=== PATIENT | male | born 1935 | race Caucasian/White ===

== ENCOUNTER 2017-06-18 08:43 | Outpatient (CLI) | payer MEDICARE ==
--- NOTE | 2017-06-18 13:14 | CT ---
ABDOMEN CT WITH AND WITHOUT CONTRAST: Date: 06/18/17 HISTORY: Pancreatic cancer. Status post chemotherapy, radiation therapy, and Whipple surgery. COMPARISON: 03/19/17, 10/12/16. TECHNIQUE: An abdomen CT is performed with and without contrast. Coronal reformatted images are submitted for i nterpretation. FINDINGS: Dependent atelectatic changes in the lung bases are noted. Heart size is within normal limits. No si gnificant pericardial fluid. Coronary calcifications are identified. There is atherosclerosis and el ongation of a nonaneurysmal aorta. There is nonspecific dilatation of the intrahepatic biliary system. The intra and extrahepatic chaparro l vein is patent. There is no evidence of an enhancing mass within the liver. The spleen and adrenal glands are unrema rkable. Stable hypodensity emanating from the upper pole of the right kidney compatible with a slightly comp alice cyst, measuring 4.3 x 4.2 cm. Additional hypodensities in the right kidney are also redemonstrat ed and unchanged. There is a nonspecific, nonobstructing calcification in the left renal pelvis. Lef t renal hypodensities are also noted and unchanged. The head of the pancreas and proximal body of the pancreas appear to be surgically absent. There is atrophy in the mid to distal body of the pancreas, as well as tail of the pancreas. There is a hypod ensity in the mid portion of the pancreatic body, unchanged in size measuring approximately 1.0 cm. There are subtle hypodensities in the tail of the pancreas which are also unchanged and best demonst rated on the coronal reformatted images. These hypodensities measure 5.0 and 6.0 mm. No peripancreat ic inflammatory change. There appears to be a stent in the distal pancreatic duct. No gastrohepatic, retrocrural, or periportal lymphadenopathy. No mesenteric mass, lymphadenopathy, free air, or free fluid. Symmetric attenuation of psoas muscles. Visualized alimentary canal is unremarkable. There are no osteoblastic or osteolytic lesions. There is a subtle lucency along the inferior end plate of T11 suggesting a possible mild compression fracture. This lucency was not appreciated in March 2017. IMPRESSION: 1. Findings compatible with previous Whipple surgery. 2. Multiple hypodensities in the pancreas, which are unchanged from the previous examination. 3. Indeterminate lucency involving the inferior end plate of T11 suggesting an end plate fracture. POS: JAIME
[2017-06-18] MEDS ORDERED: Iopamidol 370 76% 100 ML VIAL ONE (15:58)
== END 2017-06-18 08:44 | disposition home or self-care (01) ==
LOC: CT 08:43
PROVIDERS: ATTEND Internal Medicine Medical Oncology
DX: C25.0 Malignant neoplasm of head of pancreas (principal)
CPT/HCPCS: 74170

== ENCOUNTER 2017-09-26 08:55 | Outpatient (CLI) | payer MEDICARE ==
[2017-09-26] MEDS ORDERED: Iopamidol 370 76% 100 ML VIAL ONE (16:25)
== END 2017-09-26 08:56 | disposition home or self-care (01) ==
LOC: BICCT 08:55
PROVIDERS: ATTEND Internal Medicine Medical Oncology
DX: C25.9 Malignant neoplasm of pancreas, unspecified (principal); N28.1 Cyst of kidney, acquired; Z98.890 Other specified postprocedural states
CPT/HCPCS: 74160

== ENCOUNTER 2017-12-27 09:33 | Outpatient (CLI) | payer MEDICARE ==
[2017-12-27] MEDS ORDERED: Iopamidol 370 76% 100 ML VIAL ONE (16:10)
== END 2017-12-27 09:34 | disposition home or self-care (01) ==
LOC: BICCT 09:33
PROVIDERS: ATTEND Internal Medicine Medical Oncology
DX: C25.0 Malignant neoplasm of head of pancreas (principal); C25.2 Malignant neoplasm of tail of pancreas; N28.1 Cyst of kidney, acquired; Z98.890 Other specified postprocedural states
CPT/HCPCS: 71046; 74160

== ENCOUNTER 2018-03-18 14:53 | Inpatient (IN) | payer MEDICARE ==
[2018-03-18 15:23] LABS: Bilirubin Moderate (Negative); Blood, Urine Negative (Negative); Clarity TURBID (Clear); Glucose, Urine (Dipstick) 250 mg/dL (Negative); Leukocyte Moderate (Negative); Nitrite Negative (Negative); Protein, Urine (Dipstick) 300 mg/dL (Neg-Trace); Specific Gravity, Urine 1.025 (1.002-1.036)
[2018-03-18 15:28] LABS: Pathc Cast-AUWi Flag 19.19 (0-2.49)
[2018-03-18 15:36] LABS: Bacteria/HPF 1+ HPF (None Seen); Crystals/HPF 1+ CA OXALATE HPF (Negative); Hyaline Casts/LPF 0-3 HYALINE CAST LPF (0-3 Hyaline); Manual Microscopic Reviewed? No Path Casts Seen; RBC/HPF 0-3 HPF (0-3); Renal Epithelial None Seen HPF (0-3); Transitional Epithelial 0-3 HPF (0-3)
[2018-03-18 15:36] LABS: Hemoglobin 16.4 g/dL (14.0-18.0); Mean Corpuscular HGB CONC 34.2 g/dL (32.0-36.0); Mean Corpuscular Hemoglobin 33.5 pg (27.0-31.0); Mean Corpuscular Volume 97.9 fL (78.0-98.0); Mean Platelet Volume 7.8 fL (7.4-10.4); Platelet Count 151 thou/uL (130-400); RBC Distribution Width 12.5 % (11.5-14.5); Red Blood Cell (RBC) Count 4.91 mill/uL (4.70-6.10); White Blood Cell (WBC) Count 8.5 thou/uL (4.8-10.8)
[2018-03-18 15:54] LABS: ALT (SGPT) 60 U/L (8-55); AST (SGOT) 59 U/L (5-34); Alkaline Phosphatase 185 U/L (40-150); Anion Gap 14 mmol/L (10-20); BUN (Urea Nitrogen) 21 mg/dL (8.4-25.7); Bilirubin, Total 1.2 mg/dL (0.2-1.2); CK (CPK) 139 U/L (30-200); Calc. Creatinine Clearance 0 mL/min (70-130); Calcium 9.7 mg/dL (7.8-10.44); Carbon Dioxide 23 mmol/L (23-31); Chloride 103 mmol/L (98-107); Estimated GFR-MDRD 44; Globulin 3.5 g/dL (2.4-3.5); Glucose 177 mg/dL (83-110); Potassium 3.5 mmol/L (3.5-5.1); Protein, Total 7.5 g/dL (5.8-8.1); Sodium 136 mmol/L (136-145)
[2018-03-18 15:57] LABS: CKMB 2.3 ng/mL (0-6.6); Troponin I 0.026 ng/mL (< 0.028)
--- NOTE | 2018-03-18 16:05 | RAD ---
CHEST ONE VIEW: History: Dyspnea. FINDINGS: Cardiac silhouette and pulmonary vasculature are unremarkable. Right hemidiaphragm is slightly elevat ed. Mediastinum is midline with a dual-lead left subclavian cardiac electronic device and aortic calc ification. There is no confluent airspace consolidation or evidence of pneumothorax. traffic monitor specialist leads overlie the chest. IMPRESSION: 1. Atherosclerosis. 2. No active cardiopulmonary abnormalities are otherwise demonstrated. POS: GIULIA
--- NOTE | 2018-03-18 16:06 | CT ---
CT BRAIN WITHOUT CONTRAST: Indication: Altered mental status. Comparison: None. FINDINGS: There is mild generalized cerebral and cerebellar atrophy. There is mild chronic small vessel white m atter ischemic change. Septum pellucidum and third ventricle are midline. The skull and extracranial soft tissues are within normal limits. IMPRESSION: 1. No acute intracranial hemorrhage, infarct, or hydrocephalus present. 2. Mild chronic small vessel white matter ischemic change. 3. Mild generalized cerebral and cerebellar atrophy. POS: JAIME
[2018-03-18 16:08] LABS: Band 19 % (5-11); Lymphocytes 6 % (21-51); MDiff Complete? YES; Monocytes 4 % (0-10); Neutrophil 71 % (42-75); PLT Morphology Comment Appears Adequate
[2018-03-18] MEDS ORDERED: Piperacillin/Tazobactam 4.5 GM, Admixture Fee 1 EACH in Sodium Chloride 0.9% 100 ML IVPB SCH (17:00)
[2018-03-18 18:12] LABS: Magnesium 1.7 mg/dL (1.6-2.6)
[2018-03-18 19:47] LABS: Troponin I 0.072 ng/mL (< 0.028)
--- NOTE | 2018-03-18 20:04 | CT ---
CT OF ABDOMEN AND PELVIS 03/18/18 COMPARISON: 04/28/17 HISTORY: Weakness, altered mental status. TECHNIQUE: Serial axial CT imaging is obtained at 5 mm intervals from lung bases through pubic symphysis without contrast. Coronal reformatted imaging obtained. FINDINGS: Lack of contrast limits assessment of the viscera, bowel, vascular structures and for lymphadenopathy . Incompletely imaged transvenous pacing device present. Coronary arterial calcifications are noted. Im aged lung parenchyma demonstrates no acute findings. No free intraperitoneal air is seen. Limited ass essment of the liver, spleen, and adrenal glands is unremarkable. The pancreas is atrophic. There is a bowel suture line associated with the distal stomach. There is a suture line associated with the du odenum as well. Lack of contrast media limits assessment of the chaparro hepatis in the area of postsurg ical change. There is a exophytic upper pole right renal cyst measuring approximately 4 cm. Two punctate nonobstructing stones are noted within the mid/lower pole left kidney measuring up to 4 mm. There is no evidence for obstructive uropathy on either side. Prostate gland is prominent and demonstrates dystrophic calcification. Limited assessment of the maxim l demonstrates no acute findings. There is extensive atherosclerotic calcification of the abdominal a nyla and its branches. The osseous structures demonstrate prominent multilevel degenerative change wi thin the lumbar spine. Mild age indeterminate anterior wedge compression fracture at T12 noted. Stable anterior wedge compression fracture of L2 noted. IMPRESSION: Numerous chronic findings as described above. No evidence for obstructive uropathy. POS: [facility]
[2018-03-18] MEDS ORDERED: Ondansetron ODT 4 MG TAB SL PRN (20:05)
[2018-03-18] MEDS ORDERED: Ondansetron HCl/PF 4 MG/2 ML Vial IVP PRN ×2 (20:05→22:13)
[2018-03-18] MEDS ORDERED: Sodium Chloride 0.9% 1,000 ML IV SCH (20:05)
[2018-03-18 20:12] VITALS: BMI 23.9
[2018-03-18 21:19] LABS: Lactic Acid 4.6 mmol/L (0.5-2.2)
[2018-03-18] MEDS ORDERED: Calcium Carbonate 500 MG ChewTAB PO PRN (21:24)
[2018-03-18] MEDS ORDERED: Pancrelipase DR 12000 1 CAP PO SCH (21:30)
[2018-03-18] MEDS ORDERED: Potassium Phosphate 15 MMOL in Sodium Chloride 0.9% 250 ML 250 ML IVPB SCH ×2 (21:30→22:30)
[2018-03-18] MEDS ORDERED: TRESIBA SC SCH (21:30)
[2018-03-18] MEDS ORDERED: cloNIDine 0.1 MG TAB PO PRN (22:13)
[2018-03-18] MEDS ORDERED: hydrALAZINE 20 MG/ML VIAL SLOW IVP PRN (22:13)
[2018-03-18] MEDS ORDERED: HumaLOG 300 UNITS/3 ML VIAL SC PRN (22:13)
[2018-03-18] MEDS ORDERED: Dextrose 50% Abboject 50 ML SYRINGE SLOW IVP PRN (22:13)
[2018-03-18] MEDS ORDERED: Dextrose 5% in Water 1,000 ML IV PRN (22:13)
[2018-03-18] MEDS ORDERED: Ondansetron ODT 4 MG TAB PO PRN (22:13)
[2018-03-18] MEDS ORDERED: Acetaminophen 500 MG TAB PO PRN (22:13)
[2018-03-18] MEDS: Sodium Chloride 0.9% 1,000 ML IV SCH (23:17)
[2018-03-18] MEDS ORDERED: Piperacillin/Tazobactam 4.5 GM in Sodium Chloride 0.9% 100 ML IVPB SCH (23:59)
[2018-03-19] MEDS: Piperacillin/Tazobactam 3.375 GM in Sodium Chloride 0.9% 100 ML IVPB SCH ×5 (01:54→23:29)
[2018-03-19 02:28] LABS: Lactic Acid 2.9 mmol/L (0.5-2.2)
[2018-03-19 02:41] LABS: Band 37 % (5-11); Hemoglobin 13.2 g/dL (14.0-18.0); Lymphocytes 11 % (21-51); MDiff Complete? YES; Mean Corpuscular HGB CONC 34.8 g/dL (32.0-36.0); Mean Corpuscular Hemoglobin 34.3 pg (27.0-31.0); Mean Corpuscular Volume 98.6 fL (78.0-98.0); Monocytes 15 % (0-10); Neutrophil 37 % (42-75); PLT Morphology Comment Appears Decreased; Platelet Count 113 thou/uL (130-400); RBC Distribution Width 12.5 % (11.5-14.5); Red Blood Cell (RBC) Count 3.86 mill/uL (4.70-6.10); White Blood Cell (WBC) Count 12.5 thou/uL (4.8-10.8)
[2018-03-19 03:10] LABS: ALT (SGPT) 65 U/L (8-55); AST (SGOT) 65 U/L (5-34); Albumin 3.1 g/dL (3.4-4.8); Alkaline Phosphatase 120 U/L (40-150); Anion Gap 12 mmol/L (10-20); BUN (Urea Nitrogen) 20 mg/dL (8.4-25.7); Bilirubin, Total 1.2 mg/dL (0.2-1.2); Calc. Creatinine Clearance 51 mL/min (70-130); Calcium 8.7 mg/dL (7.8-10.44); Carbon Dioxide 23 mmol/L (23-31); Chloride 106 mmol/L (98-107); Estimated GFR-MDRD 53; Globulin 2.5 g/dL (2.4-3.5); Glucose 267 mg/dL (83-110); Phosphorus 4.1 mg/dL (2.3-4.7); Potassium 4.2 mmol/L (3.5-5.1); Protein, Total 5.6 g/dL (5.8-8.1); Sodium 137 mmol/L (136-145)
--- NOTE | 2018-03-19 03:32 | HP ---
DATE OF ADMISSION: 03/18/2018 PRIMARY CARE PHYSICIAN: Dr. Beauchamp with [facility] in [place], [place]. CHIEF COMPLAINT: Chills, weakness, and confusion. HISTORY OF PRESENT ILLNESS: This is an 82-year-old male who presents to [facility] Emergency Department complaining of general weakness, chills, fever, and general body aches. Patient states the symptoms began in the last 24 hours, at which he got into his truck and t urn the heater on due to the shaking chills. Patient apparently was feeling like he is going to pass out in his truck, which was parked in his driveway. Patient's family noted he was lethargic and nee ding help to get out of the truck. Patient apparently had an episode of emesis while in his vehicle as well as in urine incontinence. Patient's daughter noted that his speech was somewhat garbled and not fluent and became concerned for a possible stroke. Patient's history is significant for pancreat ic cancer, status post chemotherapy and radiation treatments, last complete approximately 4 months pr ior to this evaluation. Patient states he has a regular CT imaging of his pancreas every 3 months an d is followed at the [facility] as well as at [facility] in [place], [place]. Patient denied any sick contacts, family members with similar symptoms, recent antibiotic exposure. Patient denies any recent illness and states his appetite has been good. Patient denies any specific change to his chronic medication regimen, states he has been compliant. Patient denied any prominent cough, congestion, fever, headache, or unilateral weakness. Patient admits to mild dys uria, but states he has been unable to urinate since arriving up to the telemetry unit. In the emerg ency room, patient underwent general evaluation including metabolic screening showing an elevated lac tic acid level and urinalysis suspicious for infectious process. Patient received IV vancomycin and Zosyn after suspicion for sepsis and given intravenous normal saline. Patient was also treated with aspirin 324 mg and transferred to the telemetry unit for further evaluation. PAST MEDICAL HISTORY: 1. Pancreatic cancer, status post Whipple procedure with resection and chemotherapy and radiation tr eatments. 2. Hypertension. 3. Hypothyroidism. 4. History of nephrolithiasis. PAST SURGICAL HISTORY: 1. Status post Whipple procedure. 2. Status post pancreatic stent placement. 3. Status post back surgery. 4. Status post bilateral total knee arthroplasty. 5. Status post pacemaker placement. CURRENT MEDICATIONS: 1. Enteric-coated aspirin 81 mg one-tab p.o. daily. 2. Gabapentin 300 mg p.o. b.i.d. 3. Tresiba FlexTouch 19 units subcutaneously at bedtime. 4. Levothyroxine 25 mcg p.o. daily. 5. Losartan/hydrochlorothiazide 100/25 mg one-tab p.o. daily. 6. Multivitamin one-tab p.o. daily. 7. Creon DR 3 capsules p.o. t.i.d. 8. Red yeast rice extract 1200 mg p.o. daily. 9. Coenzyme Q10 of 50 mg p.o. daily. ALLERGIES: No known drug allergies. FAMILY HISTORY: No inheritable diseases per patient report. SOCIAL HISTORY: Patient resides in [place], [place]. Retired. . No current alcohol, tobacco or illicit drug use. Functional of all activities of daily living. REVIEW OF SYSTEMS: The following complete review of systems was otherwise negative, except as stated per HPI: Constitutional: Weight loss or gain, ability to conduct usual activities. Skin: Rash, i tching. Eyes: Double vision, pain. ENT/Mouth: Nose bleeding, neck stiffness, pain, tenderness. C ardiovascular: Palpitations, dyspnea on exertion, orthopnea. Respiratory: Shortness of breath, whe ezing, cough, hemoptysis, fever, or night sweats. Gastrointestinal: Poor appetite, abdominal pain, heartburn, nausea, vomiting, constipation, or diarrhea. Genitourinary: Urgency, frequency, dysuria, nocturia. Musculoskeletal: Pain, swelling. Neurologic/Psychiatric: Anxiety, depression. Allergy /Immunologic: Skin rash, bleeding tendency. PHYSICAL EXAMINATION: VITAL SIGNS: Currently blood pressure 127/61, pulse 81, respiratory rate 18, temperature 98.6 degree s Fahrenheit, O2 saturation 97% on room air. GENERAL APPEARANCE: This is an 82-year-old male, alert and oriented x3, pleasant, conversa nt, in no acute distress. HEENT: Pupils are equal, round, and reactive to light and accommodation. Extraocular muscles are in tact. No scleral icterus, no conjunctival injection. Nares patent. OP is clear. Oral mucosa dry. NECK: Supple, no cervical adenopathy, no thyromegaly, no carotid bruits, no JVD appreciated. Cervic al spine with full active and passive range of motion. No meningeal signs appreciated. CHEST: Lungs are clear to auscultation bilaterally. CARDIOVASCULAR: S1, S2 without noted murmur, rub, or gallop. ABDOMEN: Rounded, soft, nontender, nondistended. Bowel sounds are positive in all four quadrants. Post-surgical changes consistent with prior Whipple procedure. No rebound or guarding. EXTREMITIES: Warm and dry with fair turgor. No clubbing, cyanosis, or asymmetric edema appreciated. Pulses palpable distally at the dorsalis pedis, posterior tibial, and popliteal arteries bilaterall y. Capillary refill less than 2 seconds. NEUROLOGIC: Cranial nerves II-XII are grossly intact. No focal or lateralizing signs appreciated. PERTINENT LABORATORY DATA AND X-RAY FINDINGS: Sodium 136, potassium 3.5, chloride 103, CO2 of 23, BU N 21, creatinine 1.51, estimated GFR of 44, glucose 177. Lactic acid level 4.5, calcium 9.7, phospho stella 1.0. Magnesium 1.7, AST 59, ALT 60, alkaline phosphatase 185. Total CK 139. Troponin I negativ e x1. CRP less than 0.50. Lipase less than 4. CBC showed a white blood cell count of 8.5, hemoglob in 16, hematocrit 48, platelet count 151 with 71% neutrophils, 19% bands. Urinalysis showed trace ke tones, moderate bilirubin, moderate leukocyte esterase with 7-10 wbc's per high powered field. Rony ble chest x-ray dated 03/18/2018 showed no acute cardiopulmonary process. CT of the brain without co ntrast dated 03/18/2018 showed no acute intracranial process. Chronic small vessel ischemic changes noted. CT of the abdomen and pelvis dated 03/18/2018 showed numerous chronic findings without acute process. EKG dated 03/18/2018 by my interpretation shows ventricular pacemaker with heart rates in t he 80s. ASSESSMENT AND PLAN: 1. Sepsis. Patient will be admitted to the telemetry unit. Suspect urinary source initially. We w ill continue vancomycin 1 gram IV q.12 hours with additional Zosyn 3.375 grams IV q.6 hours. We will continue intravenous normal saline at 125 mL per hour. Blood and urine cultures pending. Serial la ctic acid per protocol. 2. Acute metabolic encephalopathy secondary to #1. Continue supportive management as outlined in #[address] imaging of the brain unremarkable. 3. Acute kidney injury. We will continue IV fluids as outlined in #1. Avoid nephrotoxic agents and contrast media. Serial creatinine. 4. Hypophosphatemia. We will continue K-Phos and monitor with repeat phosphorus level in the a.m. 5. Diabetes mellitus, type 2. We will continue home regimen of Tresiba 19 units subcutaneously at b edtime. Insulin sliding scale for reflexive coverage. ADA diet. 6. Hypertension. Hold losartan/ hydrochlorothiazide and monitor clinically. 7. Hypothyroidism. Resume levothyroxine 25 mcg daily. 8. Pancreatic cancer, status post Whipple procedure. Stable currently. Continue supportive managem ent. CT of the abdomen unrevealing. 9. Prophylaxis. Sequential compression devices while in bed. Pepcid 20 mg p.o. b.i.d. 10. Code status is FULL. Surrogate medical decision maker is patient's spouse.
[2018-03-19] MEDS: Sodium Chloride 0.9% 1,000 ML IV SCH ×3 (05:35→18:16)
[2018-03-19] MEDS: Levothyroxine Sodium 25 MCG TAB PO SCH (05:35)
[2018-03-19] MEDS: Gabapentin 300 MG CAP PO SCH ×2 (07:50→19:39)
[2018-03-19] MEDS: Famotidine 20 MG TAB PO SCH (07:50)
[2018-03-19] MEDS: Aspirin 81 mg Enteric Coated Tablet PO SCH (07:50)
[2018-03-19] MEDS: Multivitamin W/ Minerals 1 TAB PO SCH (07:50)
[2018-03-19] MEDS ORDERED: Vancomycin HCl 1.5 GM in Sodium Chloride 0.9% 250 ML 300 ML IVPB SCH (09:00)
[2018-03-19] MEDS: Pancrelipase DR 12000 1 CAP PO SCH ×2 (11:59→18:16)
[2018-03-19] MEDS: HumaLOG 300 UNITS/3 ML VIAL SC PRN (18:07)
[2018-03-20] MEDS: Piperacillin/Tazobactam 3.375 GM in Sodium Chloride 0.9% 100 ML IVPB SCH ×3 (05:14→18:36)
[2018-03-20] MEDS: Levothyroxine Sodium 25 MCG TAB PO SCH (05:15)
[2018-03-20] MEDS: Sodium Chloride 0.9% 1,000 ML IV SCH (05:15)
[2018-03-20 08:08] LABS: Vancomycin, Trough 7.8 ug/mL
--- NOTE | 2018-03-20 08:10 | PDOC.PN ---
- Subjective Encounter Start Date: 03/19/18 - Objective Resuscitation Status: Resuscitation Status FULL:Full Resuscitation Vital Signs & Weight: Vital Signs (12 hours) Temp Pulse Resp BP Pulse Ox 03/20/18 07:15 98.4 F 71 18 161/85 H 94 L 03/20/18 04:00 98.2 F 72 18 158/83 H 95 03/19/18 23:27 98.5 F 74 18 152/73 H 96 Weight Weight 184 lb 8 oz I&O: 03/19/18 03/20/18 03/21/18 06:59 06:59 06:59 Intake Total 1994 4440 Output Total 1300 2075 Balance 148 8847 Result Diagrams: 03/19/18 02:00 03/19/18 02:00 Additional Labs: Accuchecks 03/20/18 03/19/18 03/19/18 05:53 20:49 16:49 POC Glucose 135 H 194 H 229 H 03/19/18 10:39 POC Glucose 197 H Dx/Plan - Plan * .
[2018-03-20 08:20] LABS: #Eosinphils 0.1 thou/uL (0.0-0.7); #Lymphocytes 1.2 thou/uL (1.20-3.40); #Monocytes 0.8 thou/uL (0.11-0.59); #Neutrophils 6.8 thou/uL (1.40-6.50); %Basophils 0.3 % (0.0-1.0); %Eosinophils 1.5 % (0.0-10.0); %Lymphocytes 13.2 % (21.0-51.0); %Monocytes 8.9 % (0.0-10.0); %Neutrophils 76.1 % (42.0-75.0); Hemoglobin 13.4 g/dL (14.0-18.0); Mean Corpuscular Hemoglobin 33.2 pg (27.0-31.0); Mean Platelet Volume 8.5 fL (7.4-10.4); Platelet Count 105 thou/uL (130-400); RBC Distribution Width 12.5 % (11.5-14.5); Red Blood Cell (RBC) Count 4.04 mill/uL (4.70-6.10); White Blood Cell (WBC) Count 8.9 thou/uL (4.8-10.8)
[2018-03-20 08:47] LABS: Anion Gap 11 mmol/L (10-20); BUN (Urea Nitrogen) 14 mg/dL (8.4-25.7); Calc. Creatinine Clearance 66 mL/min (70-130); Calcium 8.7 mg/dL (7.8-10.44); Carbon Dioxide 24 mmol/L (23-31); Chloride 108 mmol/L (98-107); Estimated GFR-MDRD 71; Glucose 158 mg/dL (83-110); Potassium 3.9 mmol/L (3.5-5.1); Sodium 139 mmol/L (136-145)
[2018-03-20] MEDS: Aspirin 81 mg Enteric Coated Tablet PO SCH (08:49)
[2018-03-20] MEDS: Pancrelipase DR 12000 1 CAP PO SCH ×3 (08:49→18:37)
[2018-03-20] MEDS: Multivitamin W/ Minerals 1 TAB PO SCH (08:49)
[2018-03-20] MEDS: Famotidine 20 MG TAB PO SCH (08:49)
[2018-03-20] MEDS: Gabapentin 300 MG CAP PO SCH ×2 (08:49→22:19)
--- NOTE | 2018-03-20 21:18 | PDOC.PN ---
- Subjective Encounter Start Date: 03/20/18 Encounter Start Time: 11:15 Subjective: pt up in bed no complains - Objective Resuscitation Status: Resuscitation Status FULL:Full Resuscitation Vital Signs & Weight: Vital Signs (12 hours) Temp Pulse Resp BP Pulse Ox 03/20/18 16:40 97.9 F 55 L 18 165/72 H 95 03/20/18 12:15 98.1 F 65 16 165/85 H 95 Weight Weight 184 lb 8 oz I&O: 03/19/18 03/20/18 03/21/18 06:59 06:59 06:59 Intake Total 1994 4439 Output Total 1300 2075 Balance 695 2365 Result Diagrams: 03/20/18 07:38 03/20/18 07:38 Additional Labs: Accuchecks 03/20/18 03/20/18 11:41 05:53 POC Glucose 156 H 135 H Phys Exam - Physical Examination HEENT: PERRLA, moist MMs, sclera anicteric, TM's clear, oral pharynx no lesions , 2+ tonsils Neck: no nodes, no JVD, supple, full ROM Respiratory: no wheezing, no rales, no rhonchi, wheezing present, clear to auscultation bilateral Cardiovascular: RRR, no significant murmur, no rub, gallop, irregular Gastrointestinal: soft, non-tender, no distention, positive bowel sounds Dx/Plan (1) Bacteremia Code(s): R78.81 - BACTEREMIA Status: Acute (2) Pancreatic cancer Status: Acute (3) V-tach Code(s): I47.2 - VENTRICULAR TACHYCARDIA Status: Acute - Plan pt's blood cx positive for gram neg -: On zosyn will continue until sensitivities -: vanco discontinued -: pt has 9 beats of vtach followed by 3pvc and another 18 beat vtach -: will get echo. He is s/p whipple for pancreatic cancer * . Review of Systems - Review of Systems ENT: negative: Ear Pain, Ear Discharge, Nose Pain, Nose Discharge, Nose Congestion, Mouth Pain, Mouth Swelling, Throat Pain, Throat Swelling, Other Respiratory: negative: Cough, Dry, Shortness of Breath, Hemoptysis, SOB with Excertion, Pleuritic Pain, Sputum, Wheezing Cardiovascular: negative: chest pain, palpitations, orthopnea, paroxysmal nocturnal dyspnea, edema, light headedness, other Gastrointestinal: negative: Nausea, Vomiting, Abdominal Pain, Diarrhea, Constipation, Melena, Hematochezia, Other - Medications/Allergies Allergies/Adverse Reactions: Allergies Allergy/AdvReac Type Severity Reaction Status Date / Time No Known Drug Allergies Allergy Unverified 03/18/18 16:58 Medications: Current Medications Acetaminophen (Tylenol) 1,000 mg PO Q6H PRN PRN Reason: Headache/Fever or Mild Pain Lipase/Protease/Amylase (Arielle Anguiano [id number]) 3 cap PO TID-WM [facility] Last Admin: 03/20/18 18:37 Dose: 3 cap Aspirin (Ecotrin) 81 mg PO DAILY [facility] Last Admin: 03/20/18 08:49 Dose: 81 mg Calcium Carbonate (Tums) 1,000 mg PO Q6H PRN PRN Reason: Heartburn or Indigestion Last Admin: 03/18/18 22:37 Dose: 1,000 mg Clonidine (Catapres) 0.1 mg PO Q4H PRN PRN Reason: Systolic BP > 180 Dextrose/Water (Dextrose 50%) 25 gm SLOW IVP PRN PRN PRN Reason: Hypoglycemia Famotidine (Pepcid) 20 mg PO DAILY [facility] Last Admin: 03/20/18 08:49 Dose: 20 mg Gabapentin (Neurontin) 300 mg PO BID [facility] Last Admin: 03/20/18 08:49 Dose: 300 mg Glucagon (Glucagon) 1 mg IM PRN PRN PRN Reason: Hypoglycemia Hydralazine HCl (Apresoline) 10 mg SLOW IVP Q4H PRN PRN Reason: Systolic BP > 180 Dextrose/Water (D5w) 1,000 mls @ 0 mls/hr IV .Q0M PRN; As Directed PRN Reason: Hypoglycemia Piperacillin Sod/Tazobactam (Sod 3.375 gm/ Sodium Chloride) 100 mls @ 200 mls/ hr IVPB Q6HR [facility] Last Admin: 03/20/18 18:36 Dose: 100 mls Insulin Human Lispro (Humalog) 0 units SC .MODERATE SLIDING SC PRN PRN Reason: Moderate Correctional Scale Last Admin: 03/19/18 18:07 Dose: 4 unit Insulin Human Lispro (Humalog) 0 units SC .BEDTIME SLIDING SC PRN PRN Reason: Bedtime Correctional Scale Iron/Minerals/Multivitamins (Theragran M) 1 tab PO DAILY [facility] Last Admin: 03/20/18 08:49 Dose: 1 tab Levothyroxine Sodium (Synthroid) 25 mcg PO 0600 [facility] Last Admin: 03/20/18 05:15 Dose: 25 mcg Ondansetron HCl (Zofran Odt) 4 mg PO Q6H PRN PRN Reason: Nausea/Vomiting Ondansetron HCl (Zofran) 4 mg IVP Q6H PRN PRN Reason: Nausea/Vomiting Sodium Chloride (Flush - Normal Saline) 10 ml IVF Q12HR [facility] Last Admin: 03/20/18 08:50 Dose: Not Given Sodium Chloride (Flush - Normal Saline) 10 ml IVF PRN PRN PRN Reason: Saline Flush
[2018-03-21] MEDS: Piperacillin/Tazobactam 3.375 GM in Sodium Chloride 0.9% 100 ML IVPB SCH ×2 (00:55→05:51)
[2018-03-21 05:37] LABS: #Eosinphils 0.1 thou/uL (0.0-0.7); #Lymphocytes 1.2 thou/uL (1.20-3.40); #Monocytes 0.7 thou/uL (0.11-0.59); #Neutrophils 4.4 thou/uL (1.40-6.50); %Basophils 0.6 % (0.0-1.0); %Eosinophils 1.4 % (0.0-10.0); %Lymphocytes 19.2 % (21.0-51.0); %Neutrophils 67.8 % (42.0-75.0); Hemoglobin 12.5 g/dL (14.0-18.0); Mean Corpuscular Hemoglobin 33.8 pg (27.0-31.0); Mean Corpuscular Volume 99.4 fL (78.0-98.0); Mean Platelet Volume 8.5 fL (7.4-10.4); Platelet Count 104 thou/uL (130-400); RBC Distribution Width 12.2 % (11.5-14.5); Red Blood Cell (RBC) Count 3.72 mill/uL (4.70-6.10); White Blood Cell (WBC) Count 6.4 thou/uL (4.8-10.8)
[2018-03-21 05:39] LABS: Anion Gap 8 mmol/L (10-20); BUN (Urea Nitrogen) 14 mg/dL (8.4-25.7); Calc. Creatinine Clearance 68 mL/min (70-130); Calcium 8.6 mg/dL (7.8-10.44); Carbon Dioxide 28 mmol/L (23-31); Chloride 106 mmol/L (98-107); Estimated GFR-MDRD 74; Glucose 235 mg/dL (83-110); Potassium 4.1 mmol/L (3.5-5.1); Sodium 138 mmol/L (136-145)
[2018-03-21] MEDS: Levothyroxine Sodium 25 MCG TAB PO SCH (05:51)
[2018-03-21] MEDS: HumaLOG 300 UNITS/3 ML VIAL SC PRN (09:11)
[2018-03-21] MEDS: Famotidine 20 MG TAB PO SCH (09:11)
[2018-03-21] MEDS: Multivitamin W/ Minerals 1 TAB PO SCH (09:11)
[2018-03-21] MEDS: Aspirin 81 mg Enteric Coated Tablet PO SCH (09:11)
[2018-03-21] MEDS: Gabapentin 300 MG CAP PO SCH ×2 (09:11→21:19)
--- NOTE | 2018-03-21 11:24 | PQF ---
CLINICAL DOCUMENTATION IMPROVEMENT CLARIFICATION FORM: ICD-10 Updated PLEASE DO AN ADDENDUM TO THE PROGRESS NOTE WITH ANY DOCUMENTATION UPDATES OR ADDITIONS AND CARRY THROUGH TO DC SUMMARY. THANK YOU. DATE: 03/21/18 ATTN: Dr. Luevano Please exercise your independent, professional judgment in responding to the clarification form. Clinical indicators are provided on the bottom of this form for your review Please check appropriate box(s) to clarify if the following diagnosis has been ruled in or ruled out: SEPSIS (H&P) . [x ] Ruled in diagnosis [x ] Continue to treat [ ] Resolved [ ] Ruled out diagnosis [ ] Cannot rule out diagnosis [ ] Other diagnosis [ ] Unable to determine In addition, please specify: Present on Admission (POA): [ x ] Yes [ ] No [ ] Unable to determine For continuity of documentation, please document condition throughout progress notes and discharge summary. Thank You. CLINICAL INDICATORS - SIGNS / SYMPTOMS / LABS H&P 03/18: LACTIC ACID 4.5 SEPSIS. SUSPECT URINARY SOURCE INITIALLY ACUTE METABOLIC ENCEPHALOPATHY MARIA VICTORIA PN 03/20: BACTEREMIA . ACUTE PT'S BLOOD CULTURE POSITIVE FOR GRAM NEG. RISKS: H&P 03/18: 82 YR OLD. PANCREATIC CANCER, S/P WHIPPLE PROCEDURE. DM 2. HTN TREATMENT: CPOE 03/18: ZOSYN 3.375 GM IV Q 6 HRS Thank you, Ashtyn (This form is maintained as a part of the permanent medical record) 2014 [email or web address] All Rights Reserved Ashtyn Nolen RN, BSN [email or web address] Office: [phone] [facility]
[2018-03-21] MEDS: Pancrelipase DR 12000 1 CAP PO SCH ×3 (12:46→17:39)
[2018-03-21] MEDS: Lisinopril 5 MG TAB PO SCH (12:46)
[2018-03-21] MEDS: cefTRIAXone\\ROCEPHIN 2 GM in Sodium Chloride 0.9% 100 ML IVPB SCH (13:23)
--- NOTE | 2018-03-21 16:18 | PDOC.PN ---
- Subjective Encounter Start Date: 03/21/18 Encounter Start Time: 10:00 Patient Is seen today, alert and oriented. Explained He could go home tomorrow if his BC is Neg - Objective Resuscitation Status: Resuscitation Status FULL:Full Resuscitation Vital Signs & Weight: Vital Signs (12 hours) Temp Pulse Resp BP BP Pulse Ox 03/21/18 12:50 97.9 F 72 16 166/93 H 97 03/21/18 12:46 72 03/21/18 08:00 97.3 F L 72 16 100 03/21/18 07:55 97.3 F L 72 16 181/88 H 100 Weight Weight 185 lb 3.2 oz I&O: 03/20/18 03/21/18 03/22/18 06:59 06:59 06:59 Intake Total 4440 1300 Output Total 2075 1550 Balance 2365 -250 Result Diagrams: 03/21/18 04:30 03/21/18 04:30 Additional Labs: Accuchecks 03/21/18 03/21/18 03/20/18 10:37 05:43 21:11 POC Glucose 133 H 202 H 289 H 03/20/18 16:45 POC Glucose 205 H Radiology Reviewed by me: Yes Phys Exam - Physical Examination HEENT: PERRLA, moist MMs Neck: no nodes, no JVD Respiratory: no wheezing, no rales Cardiovascular: RRR, no significant murmur Gastrointestinal: soft, non-tender Musculoskeletal: no edema, pulses present Neurological: non-focal, normal sensation Dx/Plan (1) Bacteremia Code(s): R78.81 - BACTEREMIA Status: Acute Comment: Gram Neg Bacteremia, Will Change Abx to Rocephin 2 gm daily, will repeat Blood Culture today. Likely source of Infection is urine. (2) Pancreatic cancer Status: Acute Comment: PT follow with [facility], Will see pt as outpaitent for his workup with CT. (3) V-tach Code(s): I47.2 - VENTRICULAR TACHYCARDIA Status: Acute Comment: Will start pt on BB, Echo pedning. Stbale. - Plan cont current plan of care, continue antibiotics, PT/OT, delinquency prevention social worker, incentive spirometry, DVT proph w/lovenox * . Review of Systems - Review of Systems Eyes: negative: Pain, Vision Change, Conjunctivae Inflammation, Eyelid Inflammation, Redness, Other ENT: negative: Ear Pain, Ear Discharge, Nose Pain, Nose Discharge, Nose Congestion, Mouth Pain, Mouth Swelling, Throat Pain, Throat Swelling, Other Cardiovascular: negative: chest pain, palpitations, orthopnea, paroxysmal nocturnal dyspnea, edema, light headedness, other Gastrointestinal: negative: Nausea, Vomiting, Abdominal Pain, Diarrhea, Constipation, Melena, Hematochezia, Other Genitourinary: negative: Dysuria, Frequency, Incontinence, Hematuria, Retention , Other Musculoskeletal: negative: Neck Pain, Shoulder Pain, Arm Pain, Back Pain, Hand Pain, Leg Pain, Foot Pain, Other - Medications/Allergies Allergies/Adverse Reactions: Allergies Allergy/AdvReac Type Severity Reaction Status Date / Time No Known Drug Allergies Allergy Verified 03/21/18 12:45 Medications: Current Medications Acetaminophen (Tylenol) 1,000 mg PO Q6H PRN PRN Reason: Headache/Fever or Mild Pain Lipase/Protease/[place] ([place] [id number]) 3 cap PO TID-[facility] Last Admin: 03/21/18 12:46 Dose: 3 cap Aspirin (Ecotrin) 81 mg PO DAILY [facility] Last Admin: 03/21/18 09:11 Dose: 81 mg Calcium Carbonate (Tums) 1,000 mg PO Q6H PRN PRN Reason: Heartburn or Indigestion Last Admin: 03/18/18 22:37 Dose: 1,000 mg Carvedilol (Coreg) 3.[facility] Clonidine (Catapres) 0.1 mg PO Q4H PRN PRN Reason: Systolic BP > 180 Dextrose/Water (Dextrose 50%) 25 gm SLOW IVP PRN PRN PRN Reason: Hypoglycemia Famotidine (Pepcid) 20 mg PO DAILY [facility] Last Admin: 03/21/18 09:11 Dose: 20 mg Gabapentin (Neurontin) 300 mg PO BID [facility] Last Admin: 03/21/18 09:11 Dose: 300 mg Glucagon (Glucagon) 1 mg IM PRN PRN PRN Reason: Hypoglycemia Hydralazine HCl (Apresoline) 10 mg SLOW IVP Q4H PRN PRN Reason: Systolic BP > 180 Dextrose/Water (D5w) 1,000 mls @ 0 mls/hr IV .Q0M PRN; As Directed PRN Reason: Hypoglycemia Ceftriaxone Sodium 2 gm/ (Sodium Chloride) 100 mls @ 200 mls/hr IVPB 1230 [facility] Last Admin: 03/21/18 13:23 Dose: 100 mls Insulin Human Lispro (Humalog) 0 units SC .MODERATE SLIDING SC PRN PRN Reason: Moderate Correctional Scale Last Admin: 03/21/18 09:11 Dose: 4 unit Insulin Human Lispro (Humalog) 0 units SC .BEDTIME SLIDING SC PRN PRN Reason: Bedtime Correctional Scale Iron/Minerals/Multivitamins (Theragran M) 1 tab PO DAILY [facility] Last Admin: 03/21/18 09:11 Dose: 1 tab Levothyroxine Sodium (Synthroid) 25 mcg PO 0600 [facility] Last Admin: 03/21/18 05:51 Dose: 25 mcg Lisinopril (Zestril) 5 mg PO DAILY [facility] Last Admin: 03/21/18 12:46 Dose: 5 mg Ondansetron HCl (Zofran Odt) 4 mg PO Q6H PRN PRN Reason: Nausea/Vomiting Ondansetron HCl (Zofran) 4 mg IVP Q6H PRN PRN Reason: Nausea/Vomiting Sodium Chloride (Flush - Normal Saline) 10 ml IVF Q12HR [facility] Last Admin: 03/21/18 09:11 Dose: 10 ml Sodium Chloride (Flush - Normal Saline) 10 ml IVF PRN PRN PRN Reason: Saline Flush
[2018-03-21] MEDS: Carvedilol 3.125 MG TAB PO SCH (17:39)
[2018-03-22] MEDS: Levothyroxine Sodium 25 MCG TAB PO SCH (05:48)
[2018-03-22] MEDS: Multivitamin W/ Minerals 1 TAB PO SCH (09:08)
[2018-03-22] MEDS: Pancrelipase DR 12000 1 CAP PO SCH ×2 (09:08→12:08)
[2018-03-22] MEDS: Gabapentin 300 MG CAP PO SCH (09:09)
[2018-03-22] MEDS: Lisinopril 5 MG TAB PO SCH (09:09)
[2018-03-22] MEDS: Carvedilol 3.125 MG TAB PO SCH (09:09)
[2018-03-22] MEDS: Aspirin 81 mg Enteric Coated Tablet PO SCH (09:09)
[2018-03-22] MEDS: Famotidine 20 MG TAB PO SCH (09:09)
[2018-03-22] MEDS: HumaLOG 300 UNITS/3 ML VIAL SC PRN ×2 (09:11→12:10)
[2018-03-22] MEDS: cefTRIAXone\\ROCEPHIN 2 GM in Sodium Chloride 0.9% 100 ML IVPB SCH (12:09)
[2018-03-22 14:25] VITALS: BP 169/62; TEMP 97.7
--- NOTE | 2018-03-25 09:38 | DIS ---
DATE OF ADMISSION: 03/18/2018 DATE OF DISCHARGE: 03/22/2018 ADMITTING DIAGNOSIS: Sepsis. DISCHARGE DIAGNOSIS: Sepsis secondary to urinary tract infection. SECONDARY DIAGNOSES: 1. Acute metabolic encephalopathy. 2. Acute kidney injury. 3. Hypophosphatemia. 4. Type 2 diabetes mellitus. 5. Hypertension. HISTORY OF PRESENT ILLNESS AND HOSPITAL COURSE: In brief, this is an 82-year-old white mal e who presented to the ED complaining of generalized weakness, chills, and fevers with elevated white count. The patient was noted to have a urinary tract infection with elevated white count. The den ent was started on Zosyn and vancomycin initially, as he was pretty septic on the day of admission. His sepsis did improve with antibiotics and urine culture was growing Klebsiella, which was sensitive to Rocephin. So, patient's antibiotic was changed to Rocephin and repeat cultures were ordered. Bl ood cultures did not grow for 24 hours and patient was insisting to go home. So as patient's blood c ultures were sensitive for Rocephin and Omnicef first was prescribed on the day of discharge and the patient was discharged home in stable condition. PHYSICAL EXAMINATION: VITAL SIGNS: On the day of discharge, blood pressure is 169/62, heart rate 72, respiratory rate 16, saturating 96% on room air. GENERAL: The patient is moderately built, moderately nourished. Does not appear to be in acute dist ress at this time. CARDIOVASCULAR: S1, S2 normal. No murmurs, rubs or gallops. LUNGS: Bilateral air entry was equal. No wheezing, no crackles. ABDOMEN: Soft, nontender, no guarding, no rebound tenderness. MUSCULOSKELETAL: No calf tenderness. No pedal edema. No joint tenderness, no joint swelling. DISCHARGE MEDICATIONS: Aspirin 81 mg daily, Coreg 3.125 mg p.o. b.i.d., Omnicef 300 mg p.o. twice a day for one week, gabapentin 300 mg p.o. b.i.d., insulin units subcu at bedtime, levothyroxine 25 mcg p.o. daily, losartan/hydrochlorothiazide one tablet p.o. daily, pancrelipase 3 capsules p.o. t .i.d. DISCHARGE INSTRUCTIONS: Continue activity as tolerated. Advised to follow up with primary care phys ician in 1 week. Advised to complete the course of antibiotics. The patient is prescribed Coreg because he developed V-tachycardia while in the hospital and was pret ty tachycardic. Advised to follow up with Dr. Forman for further management of his pancreatic cancer. I spent 35 minutes of this patient on the day of discharge.
== END 2018-03-22 14:26 | disposition home or self-care (01) | DRG 871 ==
LOC: ERS 14:53 → 2NO 17:58
PROVIDERS: ADMIT Internal Medicine; ATTEND Internal Medicine
DX: A41.9 Sepsis, unspecified organism (principal); G93.41 Metabolic encephalopathy; N17.9 Acute kidney failure, unspecified; I47.2 Ventricular tachycardia; N39.0 Urinary tract infection, site not specified; R65.20 Severe sepsis without septic shock; Z85.07 Personal history of malignant neoplasm of pancreas; I10 Essential (primary) hypertension; E03.9 Hypothyroidism, unspecified; Z95.0 Presence of cardiac pacemaker; E83.39 Other disorders of phosphorus metabolism; E11.9 Type 2 diabetes mellitus without complications; Z79.82 Long term (current) use of aspirin; Z79.4 Long term (current) use of insulin; Z79.899 Other long term (current) drug therapy
CPT/HCPCS: 36415; 36416; 70450; 71045; 74176; 80048; 80053; 80202; 81003; 81015; 82550; 82553; 83605; 83690; 83735; 84100; 84484; 85007; 85025; 85027; 86140; 87040; 87077; 87086; 87149; 87186; 93005; 93306; 96365; 96367; A4216; J0360; J0696; J2543; J3370; J7050

== ENCOUNTER 2018-03-31 08:33 | Outpatient (CLI) | payer MEDICARE ==
--- NOTE | 2018-03-31 11:56 | CT ---
CT ABDOMEN WITH CONTRAST: HISTORY: C25.0 carcinoma of the pancreas status post resection with positive margins. COMPARISON: Comparison with CT abdomen and pelvis stone protocol 03/18/18. Note comparison examinations from 12/27/17 studies from outside facility. FINDINGS: The lung bases are clear. No pericardial effusion. There are numerous hepatic hypodensities which a re concerning for new metastatic disease. Hepatic segment 5 images 25 and 27 measure 7 and 5 mm, eac h. On hepatic segment 8 there is a hypodense near the dome measuring 6 mm. Numerous small sub 5 mm hypodensities are also present. On the 09/26/17 and 12/27/17 examinations these findings appear new. There is abnormal new previously enhancing fluid collection at the level of the pancreatic head with soft tissue attenuation of the pancreatic head concerning for disease recurrence. There is periphera l enhancing with some peripheral suture. There is mural thickening and enhancement concerning for a disease recurrence with resection site. There is abnormal soft tissue density extending along the po rta hepatis. The spleen is unremarkable. Renal hypodensities are similar. No dilated loops of large or small bow el. There is moderate reverse S-shaped scoliosis of the thoracolumbar spine. Compression deformities at T11 and L1 are similar. IMPRESSION: 1. New numerous sub 5 mm hepatic hypodensities as well as a hypodensity measuring up to 7 mm in the liver concerning for new metastatic disease. 2. Abnormal soft tissue attenuation with the pancreatic resection site concerning for disease recurr ence. There is also a new peripherally enhancing fluid collection measuring up to 4.2 cm concerning for disease recurrence along the resection site. POS: JAIME
== END 2018-03-31 08:34 | disposition home or self-care (01) ==
LOC: CT 08:33
PROVIDERS: ATTEND Internal Medicine Medical Oncology
DX: C25.0 Malignant neoplasm of head of pancreas (principal); R93.2 Abnormal findings on diagnostic imaging of liver and biliary tract
CPT/HCPCS: 74160; 82565

== ENCOUNTER 2018-04-04 08:01 | Outpatient (CLI) | payer MEDICARE ==
--- NOTE | 2018-04-04 11:14 | CT ---
CT THORAX WITH IV CONTRAST: DATE: 04/04/18. HISTORY: Malignant neoplasm of pancreas. COMPARISON: CT abdomen on 03/31/18. No prior CT scan of the thorax is available for evaluation. FINDINGS: There is a punctate pulmonary nodule seen within the posterior aspect of the left lower lobe. No add itional pulmonary nodule is seen. There is mild atelectasis versus scarring at the right lung base. Lungs are otherwise clear. No filling defects are seen in the tracheobronchial tree. There is no evidence of lymphadenopathy. A dual-lead left subclavian cardiac pacemaking device is noted in place. Vascular calcifications are seen in the coronary arteries as well as involving the thoracic aorta. As noted on CT scan of the abdomen, there are subcentimeter hypodense lesions within the liver better visualized on the prior exam, but may represent interval development of small metastatic lesions. The previously described enhancing fluid collection at the level of the pancreatic head with surround ing enhancing rim as well as suture material is again present, and this again may be related to disea se recurrence at resection site. This is better evaluated on the recent CT scan of the abdomen. There is evidence of cholecystectomy. Right renal cyst is again present. The compression fracture of the T11 vertebral body with vacuum phenomenon on the intervertebral disk adjacent to this vertebral body as well as prominent degenerative changes are again present. No lytic or sclerotic or osseous lesions are appreciated. IMPRESSION: 1. Tiny nonspecific pulmonary nodule left lower lobe. No additional pulmonary nodule is seen, and t here is no parenchymal lung mass present. No lymphadenopathy is noted. 2. As noted on prior CT scan of the abdomen, there are hypodense lesions within each lobe of the david er better seen on the prior study worrisome for metastatic lesions. In addition, there is soft tissu e density seen in the region of the chaparro hepatis with cystic structure with suture material and mild ly enhancing wall present adjacent the pancreatic head which may be related to disease recurrence as noted on prior CT abdomen. 3. Wedge-shaped compression fracture T11 vertebral body seen on the prior exam. POS: JAIMEH
== END 2018-04-04 08:02 | disposition home or self-care (01) ==
LOC: CT 08:01
PROVIDERS: ATTEND Internal Medicine Medical Oncology
DX: C25.0 Malignant neoplasm of head of pancreas (principal); R91.1 Solitary pulmonary nodule; K76.9 Liver disease, unspecified; S22.080A Wedge compression fracture of T11-T12 vertebra, initial encounter for closed fracture
CPT/HCPCS: 71260

== ENCOUNTER 2018-04-08 20:56 | Inpatient (IN) | payer MEDICARE ==
[~2018-04-08 20:56] MED LIST: ISOVUE-370 76%-LOCM 1 ML ONE
--- NOTE | 2018-04-08 21:22 | RAD ---
PORTABLE CHEST ONE VIEW: 04/08/18 at 9:12 p.m. HISTORY: Dizziness. FINDINGS: comparison made to exam of 03/18/18. The heart size is normal. The aorta is tortuous. Left sided pacemaker device remains in place. Lungs are well expanded without lobar consolidation, pneumothoraces, or pleural effusions. IMPRESSION: No acute process. POS: [facility]
[2018-04-08] MEDS ORDERED: Ondansetron HCl/PF 4 MG/2 ML Vial ONE ×2 (21:30→22:51)
[2018-04-08 21:56] LABS: #Basophils 0.1 thou/uL (0.0-0.2); #Eosinphils 0.5 thou/uL (0.0-0.7); #Lymphocytes 2.6 thou/uL (1.20-3.40); #Monocytes 1.4 thou/uL (0.11-0.59); #Neutrophils 10.2 thou/uL (1.40-6.50); %Basophils 0.5 % (0.0-1.0); %Eosinophils 3.7 % (0.0-10.0); %Lymphocytes 17.3 % (21.0-51.0); %Monocytes 9.5 % (0.0-10.0); %Neutrophils 69.1 % (42.0-75.0); Hemoglobin 18.8 g/dL (14.0-18.0); Mean Corpuscular HGB CONC 32.7 g/dL (32.0-36.0); Mean Corpuscular Hemoglobin 32.5 pg (27.0-31.0); Mean Corpuscular Volume 99.4 fL (78.0-98.0); Mean Platelet Volume 8.3 fL (7.4-10.4); Platelet Count 235 thou/uL (130-400); RBC Distribution Width 12.5 % (11.5-14.5); Red Blood Cell (RBC) Count 5.77 mill/uL (4.70-6.10); White Blood Cell (WBC) Count 14.8 thou/uL (4.8-10.8)
--- NOTE | 2018-04-08 22:14 | CT ---
CT BRAIN WITHOUT CONTRAST: 04/08/18 HISTORY: Dizziness and disoriented. FINDINGS: Comparison is made with exam of 03/18/18. Changes of cortical atrophy and chronic small vessel ischemic disease are again seen. No evidence of acute infarct, hemorrhage, midline shift or abnormal extra-axial fluid collections are identified. Th e ventricular size is appropriate and the basilar cisterns are patent. the visualized paranasal sinus es are well aerated. IMPRESSION: No CT evidence of acute intracranial process. POS: [facility]
[2018-04-08 22:17] LABS: ALT (SGPT) 25 U/L (8-55); AST (SGOT) 16 U/L (5-34); Albumin 4.3 g/dL (3.4-4.8); Alkaline Phosphatase 188 U/L (40-150); Anion Gap 19 mmol/L (10-20); BUN (Urea Nitrogen) 20 mg/dL (8.4-25.7); Bilirubin, Total 1.2 mg/dL (0.2-1.2); CK (CPK) 34 U/L (30-200); Calc. Creatinine Clearance 0 mL/min (70-130); Calcium 10.2 mg/dL (7.8-10.44); Carbon Dioxide 18 mmol/L (23-31); Chloride 100 mmol/L (98-107); Estimated GFR-MDRD 36; Glucose 172 mg/dL (83-110); Lipase Less than 4 U/L (8-78); Potassium 4.2 mmol/L (3.5-5.1); Protein, Total 8.3 g/dL (5.8-8.1); Sodium 133 mmol/L (136-145)
[2018-04-08 22:20] LABS: CKMB 2.5 ng/mL (0-6.6); Troponin I Less than 0.010 ng/mL (< 0.028)
[2018-04-09] MEDS ORDERED: Promethazine HCl 25 MG/ML VIAL ONE (00:23)
[2018-04-09] MEDS ORDERED: Pantoprazole 40 MG VIAL ONE (00:24)
[2018-04-09] MEDS ORDERED: Pantoprazole 80 MG, Admixture Fee 1 EACH in Sodium Chloride 0.9% 100 ML IVP SCH (00:30)
[2018-04-09 00:31] LABS: Hemoglobin 17.5 g/dL (14.0-18.0); Mean Corpuscular HGB CONC 34.2 g/dL (32.0-36.0); Mean Corpuscular Hemoglobin 33.6 pg (27.0-31.0); Mean Corpuscular Volume 98.4 fL (78.0-98.0); Mean Platelet Volume 7.8 fL (7.4-10.4); Platelet Count 217 thou/uL (130-400); RBC Distribution Width 12.4 % (11.5-14.5); Red Blood Cell (RBC) Count 5.21 mill/uL (4.70-6.10); White Blood Cell (WBC) Count 15.1 thou/uL (4.8-10.8)
[2018-04-09] MEDS ORDERED: Vancomycin HCl 25 MG/ML Oral PO SCH ×2 (00:45→06:00)
[2018-04-09 00:52] LABS: Band 14 % (5-11); Lymphocytes 12 % (21-51); MDiff Complete? YES; Monocytes 15 % (0-10); Neutrophil 57 % (42-75); PLT Morphology Comment Appears Adequate; RBC Morphology Normal; Reactive Lymphocytes 2 % (0-10)
[2018-04-09] MEDS ORDERED: metroNIDAZOLE 500 MG/100 ML BAG ONE (00:57)
[2018-04-09 01:00] LABS: Troponin I 0.015 ng/mL (< 0.028)
[2018-04-09 02:05] LABS: Lactic Acid 2.4 mmol/L (0.5-2.2)
[2018-04-09] MEDS ORDERED: Ondansetron HCl/PF 4 MG/2 ML Vial IVP PRN (03:08)
[2018-04-09] MEDS ORDERED: Ondansetron ODT 4 MG TAB SL PRN (03:08)
[2018-04-09] MEDS ORDERED: Acetaminophen 325 MG TAB PO PRN (03:08)
[2018-04-09 04:57] LABS: #Eosinphils 0.4 thou/uL (0.0-0.7); #Lymphocytes 1.4 thou/uL (1.20-3.40); #Monocytes 1.6 thou/uL (0.11-0.59); #Neutrophils 8.1 thou/uL (1.40-6.50); %Basophils 0.1 % (0.0-1.0); %Eosinophils 3.7 % (0.0-10.0); %Lymphocytes 11.7 % (21.0-51.0); %Monocytes 13.9 % (0.0-10.0); %Neutrophils 70.5 % (42.0-75.0); Hemoglobin 17.5 g/dL (14.0-18.0); Mean Corpuscular HGB CONC 33.6 g/dL (32.0-36.0); Mean Corpuscular Hemoglobin 32.9 pg (27.0-31.0); Mean Platelet Volume 8.2 fL (7.4-10.4); Platelet Count 201 thou/uL (130-400); RBC Distribution Width 12.4 % (11.5-14.5); Red Blood Cell (RBC) Count 5.33 mill/uL (4.70-6.10); White Blood Cell (WBC) Count 11.5 thou/uL (4.8-10.8)
[2018-04-09 05:13] LABS: Anion Gap 14 mmol/L (10-20); BUN (Urea Nitrogen) 21 mg/dL (8.4-25.7); Calc. Creatinine Clearance 37 mL/min (70-130); Calcium 8.5 mg/dL (7.8-10.44); Carbon Dioxide 20 mmol/L (23-31); Chloride 106 mmol/L (98-107); Estimated GFR-MDRD 39; Glucose 166 mg/dL (83-110); Potassium 4.5 mmol/L (3.5-5.1); Sodium 135 mmol/L (136-145)
[2018-04-09 05:16] LABS: Troponin I Less than 0.010 ng/mL (< 0.028)
[2018-04-09] MEDS: Vancomycin HCl 25 MG/ML Oral PO SCH ×4 (06:28→23:52)
[2018-04-09] MEDS: metroNIDAZOLE 500 MG in Premix Bag 1 BAG IVPB SCH ×2 (06:28→12:20)
[2018-04-09] MEDS: cefTRIAXone\\ROCEPHIN 1 GM in Sodium Chloride 0.9% 100 ML IVPB SCH (06:29)
[2018-04-09] MEDS: Levothyroxine Sodium 25 MCG TAB PO SCH (06:29)
[2018-04-09] MEDS: Sodium Chloride 0.9% 1,000 ML IV SCH ×3 (06:30→12:21)
--- NOTE | 2018-04-09 08:41 | CT ---
PRELIMINARY REPORT/[facility]/EMERGENTY AFTER-HOURS PROCEDURE CT Abdomen and Pelvis With Intravenous Contrast EXAM DATE/TIME: 04/09/2018 12:03 AM CLINICAL HISTORY: 82 years old, male; Signs and symptoms; Nausea and vomiting; Patient HX: Er 24; 82m presents to the e d for evaluation of dizziness, n/v/d since yesterday. Reports imodium is not helping diarrhea. Report s being in the hospital earlier this month for sepsis. Was in remission for pancreas CA until recentl y when they found cancer again in his pancreas with mets to his liver. Has an appt with dr. Milagro schaefer omorrow for port to start chemo again soon. *iv only per ordering doctor TECHNIQUE: Axial computed tomography images of the abdomen and pelvis with intravenous contrast. Coronal reformatted images were created and reviewed. COMPARISON: No relevant prior studies available. FINDINGS: Lower thorax: There is minimal bibasilar atelectatic change or scarring. ABDOMEN: Liver: There are multiple low attenuation lesions in the liver too small to characterize, the largest in the right lobe measuring a maximum of 9 mm. There is extensive portal venous gas in the liver perkins sing suspicion for possible ischemic bowel. Gallbladder and bile ducts: Normal. No calcified stones. No ductal dilation. Pancreas: There is atrophy of the pancreas in the head and uncinate process of the pancreas are not c learly visible. There is a complex cystic lesion with somewhat thick wall anterior to the neck of the pancreas and containing possible peripheral radiopaque suture material or calcification within cystic structure measuring 4.0 x 3.3 x 2.4 cm. Cannot exclude cystic mass associated with the pancrea s versus a bowel remnant from prior surgery in this region. Spleen: Normal. No splenomegaly. Adrenals: Normal. No mass. Kidneys and ureters: There is a simple cyst of the right kidney measuring 4.6 cm and there are additi onal low attenuation lesions of the kidneys that are too small to characterize. Stomach and bowel: There is pneumatosis involving the noguera of the fundus and body of the stomach wit hout obvious abnormal wall thickening or inflammatory change. There is additional mesenteric venous g as within adjacent vessels alongside the stomach in the left upper quadrant. Cannot exclude ischemic bowel involving the stomach. There is abnormal wall thickening and fat strand ing involving loops of small bowel in the mid to lower abdomen suspicious for nonspecific enteritis. There is no pneumatosis or adjacent mesenteric venous gas associated with the small bowel loops and therefore not specific for ischemic enteritis, but that possibility cannot be exclude d given the previously described findings suggestive of ischemic bowel related to the stomach. There are likely postoperative changes of gastric bypass surgery. Appendix: The appendix is not visible. PELVIS: Bladder: Unremarkable as visualized. Reproductive: There is prostate gland enlargement and calcification. ABDOMEN and PELVIS: Intraperitoneal space: Normal. No free air. No significant fluid collection. Bones/joints: There is diffuse osteopenia and there are degenerative and postoperative changes of the spine. There is mild dextroscoliosis in the lumbar spine. There is an indeterminate age compression fracture involving the T11 vertebral body. There is a chronic appearing compression fracture of the L 1 vertebral body. Soft tissues: Unremarkable. Vasculature: There are atherosclerotic aortic and iliac and femoral artery calcifications. Lymph nodes: Normal. No enlarged lymph nodes. IMPRESSION: 1. There are multiple low attenuation lesions in the liver too small to characterize, the largest in the right lobe measuring a maximum of 9 mm. 2. There is extensive portal venous gas in the liver raising suspicion for possible ischemic bowel. 3. There is pneumatosis involving the noguera of the fundus and body of the stomach without obvious abn ormal wall thickening or inflammatory change. There is additional mesenteric venous gas within adjace nt vessels alongside the stomach in the left upper quadrant. Cannot exclude ischemic bowel involving the stomach. 4. There is abnormal wall thickening and fat stranding involving loops of small bowel in the mid to l ower abdomen suspicious for nonspecific enteritis. There is no pneumatosis or adjacent mesenteric inder ous gas associated with the small bowel loops and therefore not specific for ischemic enteritis, but that possibility cannot be excluded given the previously described findings suggestive of ischemic patrick wel related to the stomach. 5. There is an indeterminate age compression fracture involving the T11 vertebral body. 6. There is atrophy of the pancreas in the head and uncinate process of the pancreas are not clearly visible. There is a complex cystic lesion with somewhat thick wall anterior to the neck of the pancre as and containing possible peripheral radiopaque suture material or calcification within cystic struc ture measuring 4.0 x 3.3 x 2.4 cm. Cannot exclude cystic mass associated with the pancreas versus a b owel remnant from prior surgery in this region. Thank you for allowing us to participate in the care of your patient. Dictated and Authenticated by: Kwasi Molina MD 04/09/2018 12:46 AM Central Time ([place] & [place]) CT ABDOMEN AND PELVIS WITH CONTRAST: HISTORY: Nausea, vomiting, and diarrhea. COMPARISON: CT abdomen and pelvis from 03/31/2018. FINDINGS: The lung bases are clear. No pericardial effusion. There appears to be portal venous gas throughout the liver. There is abnormal edema within the small bowel mesentery. There appears to be pneumatosis of the stomach. IMPRESSION: The findings are concerning for ischemia. There is gas within the epiploic veins surrounding the stom ach and gastric pneumatosis. Surgical consultation high recommended. The superior mesenteric vein i s very small, and there may be tumor involvement causing tumor thrombus. Recommend correlation with lactic acid levels. CODE: CR. The hospitalist told of findings via telephone at 10:40 am. The findings and impression are in agreement with the preliminary report. POS: [facility]
[2018-04-09] MEDS: Pancrelipase DR 12000 1 CAP PO SCH ×3 (09:21→17:48)
[2018-04-09] MEDS: Aspirin 81 mg Enteric Coated Tablet PO SCH (09:21)
[2018-04-09 12:23] LABS: Lactic Acid 2.9 mmol/L (0.5-2.2)
--- NOTE | 2018-04-09 13:29 | PDOC.GSCN ---
Surgery Consult: HPI - Consult details Date: 04/09/18 Time: 13:16 Reason for consult: abdominal pain Requesting physician: [place] History of present illness: Adelfo Zheng is an 82 yo male with a pmh of recurrent pancreatic cancer and a recent hospitalization for Klebsiella bacteremia who presented to [facility] with a cc of diarrhea x 2 days associated with nausea and vomiting. Pt had 8/10 periumbilical abdominal pain that has since spontaneously resolved. He reports he is passing flatus as of this morning and tolerating a CLD. He denies further emesis. He continues to have loose stools, but c.diff is negative. Pt currently on multiple IV abx to include vanc, rocephin and flagyl. He vocalized no other complaint during our visit 04/09/18 13:16 Surgery Consult: ROS - Review of Systems All systems: 10 systems reviewed and no additional complaints unless stated below. 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.) Surgery Consult: Exam - Vital signs Vital signs: Vital Signs - Most Recent Temp Pulse Resp BP Pulse Ox 98.3 F 78 22 H 122/64 94 L 04/09/18 08:00 04/09/18 08:00 04/09/18 08:00 04/09/18 08:00 04/09/18 08:00 - Physical Exam General: no distress, other (resting in bed) Eye: PERRL Neck: no masses, trachea midline Respiratory: normal expansion, normal respiratory effort Abdomen: non tender, soft, bowel sounds, surgical scars (old midline surgical scar with large ventral hernia), other (no signs of peritonitis, guarding or rigidity) Integumentary: no abnormal pigmentation Neurologic: other (No focal deficit) Musculoskeletal: other (CUI x4, no edema) Psychiatric: oriented to time, oriented to person, oriented to place, speech is normal Surgery Consult: Meds - Medications MAR Reviewed: Yes Medications: Current Medications Lipase/Protease/Amylase (Arielle Anguiano [id number]) 3 cap PO TID-WM NADIA Last Admin: 04/09/18 12:17 Dose: 3 cap Aspirin (Ecotrin) 81 mg PO DAILY [facility] Last Admin: 04/09/18 09:21 Dose: 81 mg Ceftriaxone Sodium 1 gm/ (Sodium Chloride) 100 mls @ 200 mls/hr IVPB Q24HR [facility] Last Admin: 04/09/18 06:29 Dose: 100 mls Levothyroxine Sodium (Synthroid) 25 mcg PO 0600 [facility] Last Admin: 04/09/18 06:29 Dose: 25 mcg Pneumococcal 13-Valent Conj Vacc (Prevnar) 0.5 ml IM .ONCE ONE Stop: 04/10/18 09:01 Saccharomyces Boulardii (Florastor) 250 mg PO DAILY [facility] Sodium Chloride (Flush - Normal Saline) 10 ml IVF Q12HR [facility] Last Admin: 04/09/18 09:21 Dose: 10 ml Sodium Chloride (Flush - Normal Saline) 10 ml IVF PRN PRN PRN Reason: Saline Flush Vancomycin HCl (First Vancomycin) 125 mg PO Q6HR [facility] Last Admin: 04/09/18 12:18 Dose: 125 mg - Allergies Allergies/Adverse Reactions: Allergies Allergy/AdvReac Type Severity Reaction Status Date / Time No Known Drug Allergies Allergy Verified 03/21/18 12:45 Surgery Consult: Results - Labs Result Diagrams: 04/09/18 04:17 04/09/18 04:17 Lab results: Laboratory Results WBC 11.5 thou/uL (4.8-10.8) H 04/09/18 04:17 RBC 5.33 mill/uL (4.70-6.10) 04/09/18 04:17 Hgb 17.5 g/dL (14.0-18.0) 04/09/18 04:17 Hct 52.2 % (42.0-52.0) H 04/09/18 04:17 MCV 98.0 fL (78.0-98.0) 04/09/18 04:17 MCH 32.9 pg (27.0-31.0) H 04/09/18 04:17 MCHC 33.6 g/dL (32.0-36.0) 04/09/18 04:17 RDW 12.4 % (11.5-14.5) 04/09/18 04:17 Plt Count 201 thou/uL (130-400) 04/09/18 04:17 MPV 8.2 fL (7.4-10.4) 04/09/18 04:17 Neutrophils % 70.5 % (42.0-75.0) 04/09/18 04:17 Neutrophils % (Manual) 57 % (42-75) 04/09/18 00:23 Band Neuts % (Manual) 14 % (5-11) H 04/09/18 00:23 Lymphocytes % 11.7 % (21.0-51.0) L 04/09/18 04:17 Lymphocytes % (Manual) 12 % (21-51) L 04/09/18 00:23 Reactive Lymphs % 2 % (0-10) 04/09/18 00:23 Monocytes % 13.9 % (0.0-10.0) H 04/09/18 04:17 Monocytes % (Manual) 15 % (0-10) H 04/09/18 00:23 Eosinophils % 3.7 % (0.0-10.0) 04/09/18 04:17 Basophils % 0.1 % (0.0-1.0) 04/09/18 04:17 Neutrophils # 8.1 thou/uL (1.40-6.50) H 04/09/18 04:17 Lymphocytes # 1.4 thou/uL (1.20-3.40) 04/09/18 04:17 Monocytes # 1.6 thou/uL (0.11-0.59) H 04/09/18 04:17 Eosinophils # 0.4 thou/uL (0.0-0.7) 04/09/18 04:17 Basophils # 0.0 thou/uL (0.0-0.2) 04/09/18 04:17 Plt Morphology Comment Appears Adequate 04/09/18 00:23 RBC Morph Comment Normal 04/09/18 00:23 Sodium 135 mmol/L (136-145) L 04/09/18 04:17 Potassium 4.5 mmol/L (3.5-5.1) 04/09/18 04:17 Chloride 106 mmol/L (98-107) 04/09/18 04:17 Carbon Dioxide 20 mmol/L (23-31) L 04/09/18 04:17 Anion Gap 14 mmol/L (10-20) 04/09/18 04:17 BUN 21 mg/dL (8.4-25.7) 04/09/18 04:17 Creatinine 1.70 mg/dL (0.6-1.3) H 04/09/18 04:17 Estimated GFR (MDRD) 39 04/09/18 04:17 Glucose 166 mg/dL (83-110) H 04/09/18 04:17 POC Glucose 233 mg/dL (70-110) H 04/09/18 11:00 Lactic Acid 2.9 mmol/L (0.5-2.2) H 04/09/18 11:48 Calcium 8.5 mg/dL (7.8-10.44) 04/09/18 04:17 Total Bilirubin 1.2 mg/dL (0.2-1.2) 04/08/18 21:30 AST 16 U/L (5-34) 04/08/18 21:30 ALT 25 U/L (8-55) 04/08/18 21:30 Alkaline Phosphatase 188 U/L (40-150) H 04/08/18 21:30 Creatine Kinase 34 U/L (30-200) 04/08/18 21:30 CK-MB (CK-2) 2.5 ng/mL (0-6.6) 04/08/18 21:30 Troponin I Less than 0.010 ng/mL (< 0.028) 04/09/18 04:17 Serum Total Protein 8.3 g/dL (5.8-8.1) H 04/08/18 21:30 Albumin 4.3 g/dL (3.4-4.8) 04/08/18 21:30 Globulin 4.0 g/dL (2.4-3.5) H 04/08/18 21:30 Albumin/Globulin Ratio 1.1 g/dL (1.2-2.2) L 04/08/18 21:30 Lipase Less than 4 U/L (8-78) L 04/08/18 21:30 - Radiology Interpretation CT scan - abdomen Status: image reviewed by me (Dr Mendoza has seen and reviewed the CT scan) Surgery Consult: A/P - Problem (1) Abdominal pain Current Visit: Yes Code(s): R10.9 - UNSPECIFIED ABDOMINAL PAIN Status: Acute Qualifiers: Abdominal location: epigastric Qualified Code(s): R10.13 - Epigastric pain (2) Diarrhea Current Visit: Yes Code(s): R19.7 - DIARRHEA, UNSPECIFIED Status: Acute (3) Enteritis Current Visit: Yes Code(s): K52.9 - NONINFECTIVE GASTROENTERITIS AND COLITIS, UNSPECIFIED Status: Acute (4) Pancreatic cancer Current Visit: No Status: Acute - Plan Plan: There is no indication for acute surgical intervention at this time. Pts abdomen is benign, he is hemodynamically stable and WBC improving on IV abx. Evidence of ischemic colitis should be medically managed at this time. Will continue to follow clinically with serial abdominal exams. Pt was seen and evaluated concurrently with Dr Mendoza.
[2018-04-09 17:14] VITALS: BMI 22.9
[2018-04-09] MEDS ORDERED: CEFAZOLIN/Water 2 GM/20 ML SYRINGE SLOW IVP SCH (18:45)
--- NOTE | 2018-04-09 22:55 | HP ---
DATE OF ADMISSION: 04/09/2018 CHIEF COMPLIANT: Complaints of diarrhea past 2 days with dehydration and dizziness. HISTORY OF PRESENTING ILLNESS: This is an 82-year-old male with a history of recurrence of pancreati c cancer with mets in liver, comes in with a two-day history of uncontrolled diarrhea. Imodium did n ot seem to have helped, patient was brought in by the family for the complaints of dehydration and di zziness. Patient's history is also significant for hypertension and diabetes. PAST MEDICAL HISTORY: Significant for 1. Pancreatic cancer. 2. Diabetes. 3. Hypertension. PAST SURGICAL HISTORY: History of Whipple's, stent in pancreas, back surgery, bilateral knee replace ment, pacemaker. SOCIAL HISTORY: Patient denies any alcohol, patient denies any drug use, patient has no smoking hist ory. PHYSICAL EXAMINATION: CONSTITUTIONAL: Vital signs reviewed. Patient is fairly built and no obvious distress. HEENT: Normocephalic, atraumatic head. Eyes examination is within normal limits. Pupils are round and reactive to light. Nonicteric to conjunctivae. External ears are within normal limits. Externa l ear canal is within normal limits. No signs of sore throat. CARDIOVASCULAR: Patient's heart rate is regular and rhythm. No murmurs. RESPIRATORY: Good bilateral airway entry. No wheezes, no rales. ABDOMEN: Soft, nontender, nondistended, +4 bowel sounds. MUSCULOSKELETAL: No bony tenderness or joint swelling and no pedal edema. NEUROLOGIC: Within normal limits. Patient is oriented to time, place, and person. Speech is normal . Gait is normal. ASSESSMENT AND PLAN: 1. Diarrhea has seemed to be a little bit under control during the time of my examination, patient i s feeling much better after he did receive IV fluid resuscitation. Patient was started on IV antibio tics empirically. We need to follow up on the stool cultures and also the Clostridium difficile cult ures. 2. Abdominal pain has substantially decreased. Continue the IV antibiotics for now and follow up on the cultures. 3. Recurrence of the pancreatic cancer with metastasis in the liver. Patient is following up with Gerardo Forman and port placement is pending possible restart of the chemo in [address] Forman as outpatient.
--- NOTE | 2018-04-10 00:45 | CON ---
DATE OF CONSULTATION: 04/09/2018 CHIEF COMPLAINT: Recurrent pancreatic cancer. HISTORY OF PRESENT ILLNESS: Patient is an 82-year-old white male. He is status post Whipple procedu re last year for pancreatic cancer. He underwent additional chemotherapy and radiation. He has been followed with serial CT scans. CT scan obtained last week reveals new lesions within the liver cons istent with metastatic disease. Additional chemotherapy was recommended and he was referred to see m yself for MediPort placement. Patient's appointment in my office was supposed to be today. He instead presented to the emergency r oom last night secondary to weakness, some confusion and dehydration with diarrhea. He was admitted to the hospital and has undergone testing including CT scan and laboratory testing. He tells me, he feels very good and denies any abdominal pain and after he has been hydrated, he notes that his sympt oms have resolved. He anticipates discharge home tomorrow. He was tested and found to be C. diff ne gative. PAST MEDICAL HISTORY: 1. Pancreatic cancer. 2. Hypertension. 3. Hypothyroidism. 4. History of nephrolithiasis. PAST SURGICAL HISTORY: 1. Whipple procedure. 2. Back surgery. 3. Bilateral total knee arthroplasty. 4. Pacemaker placement. MEDICATIONS: Include gabapentin, Tresiba, levothyroxine, losartan/hydrochlorothiazide, Creon. ALLERGIES: No known drug allergies. PERSONAL AND SOCIAL HISTORY: Lives in [place]. He is retired and . He has 4 children. One of his sons was present during examination. He denies tobacco or alcohol use. REVIEW OF SYSTEMS: Otherwise, unremarkable. FAMILY HISTORY: Noncontributory. PHYSICAL EXAMINATION: VITAL SIGNS: Temperature 98.2, pulse 79, blood pressure 151/69. GENERAL: Well-developed, well-nourished, pleasant white male resting in bed in no acute distress. H e is alert and oriented x3. HEENT, EYES, EARS, NOSE, AND THROAT: Unremarkable. NECK: Supple, without mass or tenderness. LUNGS: Clear to auscultation throughout. CARDIAC: Regular rate and rhythm without murmur. ABDOMEN: Soft, nontender, nondistended. There is absolutely no focus of discomfort within his abdom en. He has got a hernia in his midline upper abdominal incision. LABORATORY DATA: Basic metabolic panel reveals mild creatinine elevation of 1.7, but it is down from 1.79 earlier. Minor electrolyte abnormalities. CBC reveals a white blood cell count of 11.5 and he moglobin of 17.5. ASSESSMENT: Patient with recurrent pancreatic cancer. PLAN: MediPort placement for chemotherapy administration. Patient has a pacemaker in his left chest ; therefore, placement will be in the right chest. I have discussed the operation in detail with the patient as well as potential risks. He understands and agrees to proceed with surgery at this time.
[2018-04-10] MEDS: Levothyroxine Sodium 25 MCG TAB PO SCH (05:38)
[2018-04-10] MEDS: Vancomycin HCl 25 MG/ML Oral PO SCH ×2 (05:38→11:25)
[2018-04-10] MEDS: cefTRIAXone\\ROCEPHIN 1 GM in Sodium Chloride 0.9% 100 ML IVPB SCH (05:38)
[2018-04-10] MEDS: Aspirin 81 mg Enteric Coated Tablet PO SCH (08:07)
[2018-04-10] MEDS: Saccharomyces boulardii 250 MG CAP PO SCH (08:08)
[2018-04-10] MEDS: Pancrelipase DR 12000 1 CAP PO SCH ×3 (08:08→17:06)
[2018-04-10] MEDS ORDERED: Prevnar 13-Val Conj/PF 0.5 ML SYRINGE IM ONE (09:00)
[2018-04-10] MEDS ORDERED: Lidocaine 2% 10 ML INJ ONE (09:11)
[2018-04-10] MEDS ORDERED: Bupivacaine/Epinephrine 0.25% 30 ML VIAL ONE (09:11)
[2018-04-10] MEDS ORDERED: CEFAZOLIN/Water 2 GM/20 ML SYRINGE ONE (09:17)
[2018-04-10] MEDS ORDERED: Lidocaine 1% (PF) 30 ML VIAL ONE (09:26)
[2018-04-10] MEDS ORDERED: Midazolam HCl 2 mg/2 ml Vial ONE (09:28)
[2018-04-10] MEDS ORDERED: Fentanyl 100 MCG/2 ML VIAL ONE (09:28)
[2018-04-10] MEDS ORDERED: Promethazine HCl 25 MG/ML VIAL SLOW IVP PRN (10:18)
[2018-04-10] MEDS ORDERED: Promethazine HCl 25 MG/ML VIAL IM PRN (10:18)
[2018-04-10] MEDS ORDERED: Ondansetron HCl/PF 4 MG/2 ML Vial IVP PRN (10:18)
--- NOTE | 2018-04-10 11:42 | RAD ---
PORTABLE CHEST: Date: 04-10-18 Provided Clinical History: Status post Mediport. FINDINGS: Comparison 04-08-18. Cardiac and mediastinal silhouette is unchanged in appearance. Left subclavian ca rdiac pacing device is redemonstrated. Interval placement of right subclavian implanted port, tip ove rlying the expected location of SVC. No focal consolidation, pleural fluid, or pneumothorax apparent. IMPRESSION: Interval implanted port placement without evidence for complication. POS: GIULIA
[2018-04-10] MEDS ORDERED: Lidocaine 1% PF 5 ML VIAL ONE (12:12)
[2018-04-10] MEDS ORDERED: PROPOFOL 200 MG/20 ML VIAL ONE (12:12)
--- NOTE | 2018-04-10 14:20 | PDOC.PN ---
- Subjective Encounter Start Date: 04/10/18 Encounter Start Time: 13:55 Subjective: f/u for gastroenteritis, dehydration. Overall feels better and stool -: stool frequency decreasing. No fever. s/p R subclavian Mediport -: placement today. - Objective Resuscitation Status: Resuscitation Status FULL:Full Resuscitation MAR Reviewed: Yes Vital Signs & Weight: Vital Signs (12 hours) Temp Pulse Resp BP Pulse Ox 04/10/18 11:35 97.6 F 72 16 169/81 H 96 04/10/18 08:00 98.4 F 73 16 97 04/10/18 07:52 98.4 F 73 16 142/73 H 97 04/10/18 03:20 98.3 F 77 14 166/94 H 97 Weight Admit Weight 173 lb 14.4 oz Weight 173 lb 11.2 oz I&O: 04/09/18 04/10/18 04/11/18 06:59 06:59 06:59 Intake Total 280 3560 Balance 280 3560 Result Diagrams: 04/09/18 04:17 04/09/18 04:17 Additional Labs: Accuchecks 04/10/18 04/10/18 04/09/18 11:12 06:13 20:48 POC Glucose 127 H 132 H 182 H 04/09/18 16:35 POC Glucose 228 H Microbiology 04/08/18 22:59 Stool - Pending Stool Occult Blood (MCKINLEY) - Final 04/08/18 22:59 Stool - Pending Stool Lactoferrin - Final 04/08/18 22:59 Stool - Pending C. difficile GDH Antigen & Toxins - Final 04/08/18 21:52 Venous blood - Left Arm Blood Culture - Preliminary NO GROWTH AT 48 HOURS 04/08/18 21:30 Venous blood - Right Arm Blood Culture - Preliminary NO GROWTH AT 48 HOURS Laboratory Tests 04/08/18 04/08/18 04/09/18 21:30 21:30 00:23 WBC 14.8 H 15.1 H Creatinine 1.79 H Lactic Acid 04/09/18 01:43 WBC Creatinine Lactic Acid 2.4 H Radiology Reviewed by me: Yes (PCXR - R subclavian mediport in place) EKG Reviewed by me: Yes (Tele - SR) Phys Exam - Physical Examination Constitutional: NAD HEENT: PERRLA, sclera anicteric, oral pharynx no lesions Neck: no nodes, no JVD, supple, full ROM R Mediport in place, + ecchymosis Respiratory: no wheezing, no rales, no rhonchi, clear to auscultation bilateral S1, S2 Cardiovascular: RRR, no significant murmur, no rub, gallop Gastrointestinal: soft, non-tender, no distention, positive bowel sounds Musculoskeletal: no edema, pulses present Neurological: non-focal, normal sensation, moves all 4 limbs Psychiatric: normal affect, A&O x 3 Skin: no rash, normal turgor, cap refill <2 seconds Dx/Plan (1) Antibiotic-associated diarrhea Code(s): K52.1 - TOXIC GASTROENTERITIS AND COLITIS; T36.95XA - ADVERSE EFFECT OF UNSP SYSTEMIC ANTIBIOTIC, INIT ENCNTR Status: Acute Comment: Stool cx negative to date, supportive mgmt, hold antibiotics, Probiotics daily (2) Dehydration Code(s): E86.0 - DEHYDRATION Status: Acute Comment: Improved with IVF hydration, encourage po free-H2O intake (3) MARIA VICTORIA (acute kidney injury) Code(s): N17.9 - ACUTE KIDNEY FAILURE, UNSPECIFIED Status: Acute Comment: Continue volume replacement, avoid nephrotoxic meds and limit contrast exposure , repeat creatinine in am (4) Pancreatic cancer Status: Acute Comment: s/p Mediport placement 04/10/18, plan for outpt chemo per [facility] - Plan social media designer, out of bed/ambulate, DVT proph w/SCDs Stable overall -: D/C Vancomycin and Rocephin -: Florastor 250mg daily -: OOB/ambulate -: Saline lock IVF * AM lab: BMP * Home in am
[2018-04-10] MEDS: Carvedilol 3.125 MG TAB PO SCH (17:06)
[2018-04-10] MEDS: Gabapentin 300 MG CAP PO SCH (20:15)
[2018-04-10] MEDS ORDERED: INSULIN DEGLUDEC SQ SCH (21:00)
--- NOTE | 2018-04-11 00:28 | OP ---
DATE OF OPERATION: 04/10/2018 PREOPERATIVE DIAGNOSIS: Metastatic pancreatic cancer. POSTOPERATIVE DIAGNOSIS: Metastatic pancreatic cancer. OPERATION PERFORMED: Placement of a right subclavian low profile MediPort. SURGEON: Jeffrey Humphrey MD ANESTHESIA: Total intravenous anesthesia with local using 0.25% Marcaine with epinephrine. INDICATIONS: The patient is an 82-year-old white male. He was diagnosed last year with pancreatic c ancer. He underwent surgical and adjuvant treatment of his cancer. He was unfortunately found to castaneda ve recurrent disease within the past couple of weeks with evidence of metastatic disease to his liver . Additional chemotherapy is planned and MediPort placement is requested for this purpose. DESCRIPTION OF OPERATION: Informed consent was obtained. The patient was taken to the operating nancy m where total intravenous anesthesia was obtained with the patient in supine position. Right pericla vicular area was prepped with ChloraPrep and draped in sterile fashion. Local anesthetic was infiltr ated and a large gauge needle was passed under the clavicle in the subclavian vein. Guidewire was pa ssed through the needle and fluoroscopically confirmed to enter the superior vena cava. Additional l ocal anesthetic was infiltrated and transverse incision was created based on needle insertion site. A subcutaneous pocket was dissected inferiorly. Introducer dilator was passed over the guidewire und er fluoroscopic guidance. The guidewire and dilator were removed, and the catheter was passed throug h the introducer. The tip of the catheter was positioned at the atriocaval junction and the catheter was trimmed to the appropriate length and secured to the locking hub of the MediPort. The port was then placed in the subcutaneous pocket where it was secured to the pectoral fascia with 2 interrupted sutures of 3-0 Prolene. The incision was then closed in layers with 3-0 and 4-0 Monocryl. Addition al local anesthetic was infiltrated. The port was cannulated with a Barrera needle and it aspirated bl ood freely and was flushed with heparinized saline. Dermabond was placed externally on the skin inci prudence. There were no complications. Blood loss was negligible. The patient tolerated the procedure well and was taken to recovery room in stable condition. FINDINGS: The port placed was a low-profile power compatible MediPort in his right subclavian vein. His anatomy was usual. His pacemaker and pacemaker leads were noted under fluoroscopy during the sutherland rgery. There were no complications and essentially no blood loss. The patient tolerated the procedu re well and was taken to recovery in stable condition.
[2018-04-11] MEDS: Levothyroxine Sodium 25 MCG TAB PO SCH (05:51)
[2018-04-11 06:34] LABS: Anion Gap 14 mmol/L (10-20); BUN (Urea Nitrogen) 8 mg/dL (8.4-25.7); Calc. Creatinine Clearance 73 mL/min (70-130); Calcium 8.2 mg/dL (7.8-10.44); Carbon Dioxide 19 mmol/L (23-31); Chloride 109 mmol/L (98-107); Estimated GFR-MDRD 85; Glucose 145 mg/dL (83-110); Potassium 3.9 mmol/L (3.5-5.1); Sodium 138 mmol/L (136-145)
[2018-04-11 07:58] VITALS: BP 170/81; TEMP 97.8
[2018-04-11] MEDS ORDERED: Non-Formulary Item 1 EACH (Ubidecarenone [Coq-10] 50 MG) PO SCH (09:00)
[2018-04-11] MEDS ORDERED: Ubidecarenone 50 MG CAP PO SCH (09:00)
[2018-04-11] MEDS ORDERED: RED YEAST RICE 1200 MG PO SCH ×2 (09:00)
[2018-04-11] MEDS: Saccharomyces boulardii 250 MG CAP PO SCH (09:29)
[2018-04-11] MEDS: Carvedilol 3.125 MG TAB PO SCH (09:29)
[2018-04-11] MEDS: Aspirin 81 mg Enteric Coated Tablet PO SCH (09:30)
[2018-04-11] MEDS: Pancrelipase DR 12000 1 CAP PO SCH ×2 (09:30→11:55)
[2018-04-11] MEDS: Gabapentin 300 MG CAP PO SCH (09:30)
--- NOTE | 2018-04-11 15:08 | PQF ---
DATE: 04-11-18 ATTN: DR. BLANCA AGUILAR Please exercise your independent, professional judgment in responding to the clarification form. Clinical indicators are provided on the bottom of this form for your review Please check appropriate box(es): [ ] Sepsis [ ] SIRS due to non-infectious process (please specify etiology) [ ] with organ dysfunction [ ] SIRS due to non-infectious process ( please specify etiology) [ ] without organ dysfunction [ x ] Other diagnosis [ ] Unable to determine In addition, please specify: Present on Admission (POA): [ ] Yes [ x ] No [ ] Unable to determine For continuity of documentation, please document condition throughout progress notes and discharge summary. Thank You. CLINICAL INDICATORS - SIGNS / SYMPTOMS / LABS ER DX: LOWER GI BLEED, ACUTE COLITIS-PRESUMED INFECTIOUS, ACUTE KIDNEY FAILURE , DEHYDRATION, DIARRHEA, LACTIC ACIDOSIS, LEUKOCYTOSIS, NAUSEA, VOMITING H&P: DIARRHEA, ABDOMINAL PAIN, RECURRENCE OF PANCREATIC CANCER WITH METASTASIS IN THE LIVER PN 04-10-18:l F/U GASTROENTERITIS, DEHYDRATION, S/P MEDIPORT, ANTIBIOTIC ASSOCIATED DIARRHEA, DEHYDRATION, MARIA VICTORIA, PANCREATIC CANCER WBC: 04-08-18: 14.8, 04-09-18: 15.1, 11.5 BANDS: 04-09-18: 14 LACTIC ACID: 04-08-18: 2.3, 04-09-18: 2.4, 2.9 PULSE: 04-09-18: 95, 95, 95 RR: 04-09-18: 22, 22 RISK FACTORS: ER DX: LOWER GI BLEED, ACUTE COLITIS-PRESUMED INFECTIOUS, ACUTE KIDNEY FAILURE, DEHYDRATION, DIARRHEA, LACTIC ACIDOSIS , LEUKOCYTOSIS, NAUSEA, VOMITING PN 18:l F/U GASTROENTERITIS, DEHYDRATION, S/ P MEDIPORT, ANTIBIOTIC ASSOCIATED DIARRHEA, DEHYDRATION, MARIA VICTORIA, PANCREATIC CANCER ADVANCED AGE TREATMENTS: ER: IVF, FLAGYL, VANCOMYCIN MAR: ANCEF, ROCEPHIN, VANCOMYCIN (This form is maintained as a part of the permanent medical record) 2014 [employer]. All Rights Reserved [email or web address] Office: [phone] [facility] HOSPITALGerardo
--- NOTE | 2018-04-11 15:56 | DIS ---
DATE OF ADMISSION: 04/09/2018 DATE OF DISCHARGE: 04/11/2018 DISCHARGE DIAGNOSES: 1. Antibiotic associated diarrhea, improved. 2. Dehydration, secondary to #1, improved. 3. Acute kidney injury, resolved. 4. Pancreatic cancer. 5. Status post right subclavian MediPort placement, 04/10/2018. 6. Diabetes mellitus type 2, insulin requiring. CONSULTATION: Dr. Humphrey with General Surgery Service. PERTINENT LABORATORY DATA AND X-RAY FINDINGS: Creatinine ranged between 0.86-1.79, estimated GFR ran ged between 36-85, lipase less than 4. CBC showed white blood cell count ranging between 11.5-15.1. Blood cultures x2 from 04/08/2018 showed no growth at 48 hours. C. difficile antigen and toxin date d 04/08/2018 negative. Stool Hemoccult dated 04/08/2018, positive x1. Stool lactoferrin positive x1 on 04/08/2018. CT of the abdomen and pelvis dated 04/08/2018 showed multiple low attenuation lesion s in the liver consistent with metastatic pancreatic carcinoma. Pneumatosis involving the noguera of t he fundus and body of the stomach without wall thickening or inflammatory changes. Portable chest x- ray dated 04/08/2018 showed no acute cardiopulmonary process. CT of the brain without contrast dated 04/08/2018 showed showing no acute intracranial process. Portable chest x-ray dated 04/10/2018 show ed right MediPort placement in the right subclavian position. HOSPITAL COURSE: The patient was initially admitted after presenting with diarrhea over the last 48 hours prior to admission with associated dehydration and dizziness. The patient was placed on IV flu id hydration and underwent CT imaging showing post-surgical changes consistent with previous Whipple procedure due to pancreatic carcinoma. CT imaging also showed evidence of metastatic process with pl ans for future chemotherapy. The patient underwent General Surgery evaluation with placement of righ t subclavian MediPort on 04/10/2018. The patient underwent stool evaluation showing no acute infecti ous process and likely the patient's presentation consistent with antibiotic-associated diarrhea. Th e patient clinically improved with supportive measures and IV fluid hydration and overall remained cl inically stable. Current recommendations are to continue probiotic administration after discharge. I have examined the patient at the time of discharge and discussed followup instructions at which poi nt the patient verbalized understanding and agreement. The patient overall clinically stable ready f or discharge on 04/11/2018. DISCHARGE MEDICATIONS: 1. Aspirin enteric coated 81 mg 1 tab p.o. daily. 2. Coreg 3.125 mg p.o. b.i.d. 3. Gabapentin 300 mg p.o. b.i.d. 4. Tresiba FlexTouch 19 units subcutaneously at bedtime. 5. Levothyroxine 25 mcg p.o. daily. 6. Losartan/HCTZ 100/25 mg 1 tab p.o. daily. 7. Multivitamin 1 tablet p.o. daily. 8. Creon DR 3 capsules p.o. t.i.d. 9. Red yeast rice extract 1200 mg p.o. daily. 10. Coenzyme Q10 50 mg p.o. daily. FOLLOWUP: Patient to follow up with his primary care provider, [facility] within 7 days of discharge. The patient will follow up with Dr. Forman with the [facility] and to call his office for appointment time and date. The patient will follow up with Dr. Humphrey with [facility] 2-3 weeks after discharge. CONDITION ON DISCHARGE: Stable. ACTIVITY: Ad mir. DIET: ADA. CODE STATUS: FULL. DISPOSITION: Home 04/11/2018. Total time preparing and coordinating discharge is 33 minutes.
== END 2018-04-11 12:14 | disposition home or self-care (01) | DRG 394 ==
LOC: ERS 20:56 → 2NO 04-09 02:07
PROVIDERS: ADMIT Hospitalist; ATTEND Hospitalist
PROC: 02HV33Z Insertion of Infusion Device into Superior Vena Cava, Percutaneous Approach (ICD-10-PCS; principal; 2018-04-10)
DX: K52.1 Toxic gastroenteritis and colitis (principal); N17.9 Acute kidney failure, unspecified; C78.7 Secondary malignant neoplasm of liver and intrahepatic bile duct; E86.0 Dehydration; E11.9 Type 2 diabetes mellitus without complications; I10 Essential (primary) hypertension; Z85.07 Personal history of malignant neoplasm of pancreas; T36.95XA Adverse effect of unspecified systemic antibiotic, initial encounter; Z95.0 Presence of cardiac pacemaker; Z96.653 Presence of artificial knee joint, bilateral
CPT/HCPCS: 36415; 36416; 70450; 71045; 74177; 80048; 80053; 82274; 82550; 82553; 83605; 83630; 83690; 84484; 85025; 87040; 87324; 87449; 93005; A4216; C1788; C9113; J0696; J1642; J2001; J2250; J2405; J2550; J2704; J3010; J7050

== ENCOUNTER 2018-06-16 09:26 | Outpatient (CLI) | payer MEDICARE ==
--- NOTE | 2018-06-16 14:49 | CT ---
CT ABDOMEN AND PELVIS WITH IV CONTRAST: DATE: 06/16/2018. HISTORY: Pancreatic cancer. Status post resection. Patient on chemotherapy. COMPARISON: 04/09/2018. FINDINGS: There is partial visualization of cardiac pacemaking leads again noted. Minimal atelectasis is seen at the right lung base. No pulmonary nodule, mass, or pleural effusion is seen at either lung base. There has been resolution of the extensive portal venous gas noted on the prior exam. There are subc entimeter low-density lesions again seen scattered within the liver also noted on prior exam, some of which were better seen on the prior study. Metastatic disease could not be entirely excluded. There are postsurgical changes involving the stomach. Previously noted pneumatosis involving the sto mach on prior exam has resolved. Previously described peripherally enhancing collection in the resec tion site of the pancreas which is the expected location of the body of the pancreas is again seen bu t is smaller in size when compared to prior exams. On the study of 04/09/2018, this measured 3.6 cm to 2.1 cm. There is diminished attenuation in the region of chaparro hepatis, but this is probably related to loops of bowel as opposed to enhancing lesion related to recurrent disease. No enlarged lymph nodes are seen by CT size criteria. There is ventral abdominal wall hernia which does contain a loop of small bowel. This appears to be in the region of the umbilicus. There is no evidence of a bowel obstruction. There are compression fractures again involving the T11 and T12 vertebral bodies with a stable degree of height loss. Multilevel degenerative change is seen in the spine with scoliosis of the lumbar sp ine and laminectomy defect seen at the L4-5 level. No other interval change. IMPRESSION: 1. Fatty infiltration of the liver with scattered subcentimeter hypodense lesions again seen through out each lobe of the liver which are worrisome for metastatic lesions. 2. Interval decrease in size of the small fluid collection with peripheral enhancing rim as well as suture near the region of the pancreatic resection site. The previously questioned area of soft tiss ue density along the region of the chaparro hepatis is less prominent than on the study of 03/31/2018. A trophy of the remaining pancreas is again seen. 3. Bilateral renal cysts. 4. Umbilical hernia containing loops of small bowel without evidence of a bowel obstruction. 5. Prominent degenerative changes in the spine with stable compression fractures of T12 and L1 verte bral bodies. 6. Resolution of portal venous gas as well as resolution of pneumatosis involving the stomach. Post surgical changes of the stomach are again noted as well as post cholecystectomy changes. Findings li zane related to prior Whipple procedure. POS: [facility]
[2018-06-16] MEDS ORDERED: Iopamidol 370 76% 100 ML VIAL ONE (15:12)
== END 2018-06-16 09:27 | disposition home or self-care (01) ==
LOC: CT 09:26
PROVIDERS: ATTEND Internal Medicine Medical Oncology
DX: C25.0 Malignant neoplasm of head of pancreas (principal); K86.89 Other specified diseases of pancreas; K76.0 Fatty (change of) liver, not elsewhere classified; K76.9 Liver disease, unspecified; N28.1 Cyst of kidney, acquired; K42.9 Umbilical hernia without obstruction or gangrene; M47.896 Other spondylosis, lumbar region; M48.56XD Collapsed vertebra, not elsewhere classified, lumbar region, subsequent encounter for fracture with routine healing; M48.54XD Collapsed vertebra, not elsewhere classified, thoracic region, subsequent encounter for fracture with routine healing; Z90.49 Acquired absence of other specified parts of digestive tract; Z98.890 Other specified postprocedural states; Z90.411 Acquired partial absence of pancreas
CPT/HCPCS: 74160

== ENCOUNTER 2018-08-19 07:49 | Outpatient (CLI) | payer MEDICARE ==
[2018-08-19] MEDS ORDERED: Iopamidol 370 76% 100 ML VIAL ONE (10:03)
--- NOTE | 2018-08-19 10:18 | RAD ---
PA AND LATERAL CHEST X-RAY: 08/19/2018 HISTORY: Malignant neoplasm of head of pancreas. Follow-up evaluation. COMPARISON: 04/10/2018 FINDINGS: A dual-lead left subclavian cardiac pacemaker device and a right subclavian Mediport catheter remain in place and unchanged in position. Again noted is elevation of the right hemidiaphragm. There are small bilateral pleural effusions with bibasilar atelectasis. The cardiac silhouette and pulmonary v asculature are within normal limits. Vascular calcifications are seen in the thoracic aorta. Degene rative changes are noted in the spine with calcification of the anterior longitudinal ligament. Ther e has been no other interval change. IMPRESSION: 1. Small bilateral pleural effusions, which have developed in the interim, with associated bibasilar atelectasis. 2. Mild elevation of the lateral right hemidiaphragm versus focal eventration. 3. No discrete pulmonary nodule or mass is seen on this examination. POS: [facility]
--- NOTE | 2018-08-19 10:23 | CT ---
CT ABDOMEN AND PELVIS WITH CONTRAST: HISTORY: Pancreatic cancer with metastasis to the liver. Resection of part of the pancreas and small bowel. COMPARISON: 04/09/2018 and 06/16/2018 TECHNIQUE: Multiple contiguous axial images were obtained in a CT of the abdomen and pelvis with contrast. Cont rast was administered p.o. Coronal reformats were performed. FINDINGS: There is a moderate amount of ascites. The patient is status post Whipple procedure. There is a hyp odense region in the chaparro hepatis region of the liver, which may represent the pancreatic anastomosi s. This is stable compared to the prior examination. The previously seen hypodense lesion along the left lobe of the liver is no longer visualized. No suspicious liver lesions are seen on the current examination. There are hypodensities in the kidneys, measuring up to 4.4 cm in size, which represent cysts. The a drenal glands and spleen are unremarkable. The gallbladder has been removed with the Whipple procedu re. Scattered diverticula are seen in the colon. The small bowel is normal in caliber without significan t distention. No abdominal or pelvic lymphadenopathy is seen. Atherosclerotic calcifications are se en in the aorta. There are small bilateral pleural effusions. Degenerative changes are seen in the spine. The patien t has a ventral hernia, containing nonobstructed bowel, measuring 5.7 cm in width. IMPRESSION: 1. Resolution of the previously seen left liver mass. There are no lesions visualized within the li ritika to suggest residual hepatic metastatic disease on the current exam. 2. Bilateral renal cysts. 3. Ventral hernia. POS: [facility]
== END 2018-08-19 07:50 | disposition home or self-care (01) ==
LOC: CT 07:49
PROVIDERS: ATTEND Internal Medicine Medical Oncology
DX: C25.0 Malignant neoplasm of head of pancreas (principal); N28.1 Cyst of kidney, acquired; K43.9 Ventral hernia without obstruction or gangrene; R16.0 Hepatomegaly, not elsewhere classified; J90 Pleural effusion, not elsewhere classified; J98.11 Atelectasis
CPT/HCPCS: 71046; 74177

== ENCOUNTER 2018-11-04 15:33 | Outpatient (CLI) | payer MEDICARE ==
--- NOTE | 2018-11-04 17:51 | CT ---
CT THORACIC SPINE 11/04/18 HISTORY: Thoracic spine pain. History of pancreatic cancer with liver mets. Axial images with coronal and sagittal reconstructions. CT images demonstrate vacuum disc changes seen at the T10-11 and T11-12 levels. There is approximatel y 50% compression fracture of the T11 vertebral body predominantly involving the inferior end plate w ith some superior more central end plate compression as well. No evidence of retropulsed fragments se en. This appears to be somewhat more acute in the inferior T11 level. There is also an old L1 approximately 40% compression fracture. Vacuum disc changes seen at L1-2. IMPRESSION: Subacute or acute T11 inferior end plate compression fracture. POS: [facility]
== END 2018-11-04 15:34 | disposition home or self-care (01) ==
LOC: BICCT 15:33
DX: M54.6 Pain in thoracic spine (principal); M48.54XA Collapsed vertebra, not elsewhere classified, thoracic region, initial encounter for fracture
CPT/HCPCS: 72128

== ENCOUNTER 2018-12-11 13:59 | Emergency (ER) | payer MEDICARE ==
[2018-12-11] MEDS ORDERED: HYDROcodone/Acetaminophen 10/325 mg Tablet ONE (14:32)
== END 2018-12-11 15:16 | disposition home or self-care (01) ==
LOC: ERS 13:59
DX: M54.5 Low back pain (principal); G89.29 Other chronic pain; I10 Essential (primary) hypertension; E11.9 Type 2 diabetes mellitus without complications; Z79.899 Other long term (current) drug therapy; Z79.4 Long term (current) use of insulin
CPT/HCPCS: 87077; 87086; 87186; 99283

== ENCOUNTER 2018-12-15 11:14 | Outpatient (CLI) | payer MEDICARE ==
--- NOTE | 2018-12-15 11:52 | CT ---
CT LUMBAR SPINE NONCONTRAST: CLINICAL HISTORY: Fracture, back pain. COMPARISON Reference is made to prior CT imaging exams 08/19/2018, 11/04/2018. FINDINGS: Incomplete visualization of previously documented inferior T11 vertebral body fracture. There is stab le mild to moderate height loss related to chronic L1 compression fracture. Diffuse osseous demineralization is present. There is mild retrolisthesis of L3 on 4 and L4 on 5. Tra ce spondylolisthesis is present at L5-S1. There is a slight degree of retropulsion of bone at the inf erior aspect of the compressed L1 vertebral body. Multilevel bilateral facet osteoarthritis is present throughout the lumbar spine. There is S-shaped c urvature of the lumbar spine, convex to the left superiorly, and convex to the right inferiorly. Mult ilevel gas-vacuum phenomenon is present. Contents of vertebral canal are limited in assessment on the basis of noncontrast CT imaging, althoug h there is mild to moderate multilevel osseous compromise of the central canal suggested. Partial res ection of posterior elements at the L4-5 and L5-S1 levels. Incidental note of added density in the retroperitoneum about the aorta, some of which is ill-defined . This could relate to adenopathy, although cannot be confirmed. There is an incidental right renal c yst. There is a small hypodensity within the posterior segment right hepatic lobe, incompletely evalu ated. IMPRESSION: 1. Redemonstration of chronic compression deformities, partially visualized at inferior T11, as well as a mild to moderate L1 wedge compression fracture. 2. Multilevel, extensive degenerative changes of the postoperative lumbar spine. 3. Incidental findings of the partially imaged abdomen as discussed above. Transcribed Date/Time: 12/15/2018 12:02 PM
== END 2018-12-15 11:15 | disposition home or self-care (01) ==
LOC: BICCT 11:14
PROVIDERS: ATTEND Anesthesiology Pain Medicine
DX: S32.039A Unspecified fracture of third lumbar vertebra, initial encounter for closed fracture (principal); S32.010A Wedge compression fracture of first lumbar vertebra, initial encounter for closed fracture; M47.816 Spondylosis without myelopathy or radiculopathy, lumbar region; Z98.890 Other specified postprocedural states
CPT/HCPCS: 72131

== ENCOUNTER 2019-01-10 16:34 | Inpatient (IN) | payer MEDICARE ==
[2019-01-10 17:59] LABS: Hemoglobin 11.5 g/dL (14.0-18.0); Mean Corpuscular HGB CONC 32.8 g/dL (32.0-36.0); Mean Corpuscular Hemoglobin 35.6 pg (27.0-31.0); Mean Platelet Volume 9.1 fL (7.4-10.4); Platelet Count 90 thou/uL (130-400); RBC Distribution Width 14.1 % (11.5-14.5); Red Blood Cell (RBC) Count 3.22 mill/uL (4.70-6.10); White Blood Cell (WBC) Count 11.2 thou/uL (4.8-10.8)
[2019-01-10 18:12] LABS: Band 34 % (5-11); Dohle Bodies SLIGHT; Large Platelets SLIGHT; Lymphocytes 9 % (21-51); MDiff Complete? YES; Macrocytosis SLIGHT = 6-15 cells (100X) (0-5/hpf); Metamyelocyte 1 % (0-0); Monocytes 11 % (0-10); Neutrophil 44 % (42-75); Platelet Morphology Comment Appears Decreased; Reactive Lymphocytes 1 % (0-10); Toxic Granulation SLIGHT; Vacuoles SLIGHT
[2019-01-10 18:18] LABS: ALT (SGPT) 44 U/L (8-55); AST (SGOT) 46 U/L (5-34); Albumin 2.8 g/dL (3.4-4.8); Alkaline Phosphatase 979 U/L (40-150); Anion Gap 17 mmol/L (10-20); BUN (Urea Nitrogen) 23 mg/dL (8.4-25.7); Bilirubin, Total 3.3 mg/dL (0.2-1.2); CK (CPK) 319 U/L (30-200); Calc. Creatinine Clearance 0 mL/min (70-130); Calcium 8.5 mg/dL (7.8-10.44); Carbon Dioxide 20 mmol/L (23-31); Chloride 91 mmol/L (98-107); Estimated GFR-MDRD 44; Globulin 3.3 g/dL (2.4-3.5); Glucose 334 mg/dL (83-110); Potassium 4.4 mmol/L (3.5-5.1); Protein, Total 6.1 g/dL (5.8-8.1); Sodium 124 mmol/L (136-145)
--- NOTE | 2019-01-10 18:23 | RAD ---
Portable frontal chest radiograph: 01/10/2019 COMPARISON: 04/10/2018 HISTORY: Pain and swelling FINDINGS: Lungs are clear. Stable transvenous pacing device and Port-A-Cath. IMPRESSION: No acute findings.
[2019-01-10 18:40] LABS: CKMB 7.3 ng/mL (0-6.6)
--- NOTE | 2019-01-10 18:57 | ULT ---
Bilateral lower extremity venous Doppler ultrasound: 01/10/2019 COMPARISON: None HISTORY: Pain, swelling, assess for DVT TECHNIQUE: Multiplanar grayscale sonographic imaging of the venous structures of bilateral lower extr emities obtained with color flow and spectral analysis FINDINGS: There is extensive DVT involving the right lower extremity. There is clot seen within the r ight common femoral vein, femoral vein, profunda femoral vein, and popliteal vein. This extensive DVT appears occlusive. Blood flow is seen within the posterior tibial vein and greater saphenous vein on the right. The left common femoral vein, greater saphenous vein, profunda femoral vein, femoral vein, popliteal vein, and posterior tibial vein are patent. No evidence for DVT on the left. IMPRESSION: Extensive occlusive DVT of the right lower extremity. The performing wall insulation sprayer relayed this information to Zeinab, the covering ER nurse, at the time of the examination.
--- NOTE | 2019-01-10 19:31 | CT ---
CT of lumbar spine: 01/10/2019 COMPARISON: 12/15/2018 HISTORY: Pain, swelling, fall TECHNIQUE: Axial CT imaging through the lumbar spine with coronal and sagittal reformatted imaging. FINDINGS: The bones are demineralized, limiting detailed assessment. Limited assessment of the nonoss eous structures demonstrates nonspecific small volume free fluid in the pelvis on the left and in the region of the right paracolic gutter. Scattered hypodense liver lesions are noted, suspicious for metastatic disease. There is extensive atherosclerotic calcification of the abdominal aorta and its branches. Stable right renal cysts are noted. There is an anterior wedge compression fracture of the L1 vertebral body with mild/moderate anterior vertebral body height loss, stable. There is no acute fracture involving the T12, L2, L3, L4, or L5 vertebral bodies. T12-L1: Mild bilateral facet hypertrophy with no osseous cause of significant central canal or neural foraminal stenosis. L1-2: Disc space narrowing and vacuum disc formation. Posterior osteophyte formation and bilateral fa cet hypertrophy with at least mild bilateral neural foraminal stenosis and at least mild central canal stenosis. L2-3: Disc space narrowing and posterior osteophyte formation. Mild/moderate central canal stenosis s uspected. Bilateral facet hypertrophy with associated neural foraminal stenosis noted, left greater than right. L3-4: Disc space narrowing and vacuum disc formation with posterior osteophyte. Bilateral facet hyper trophy, left greater than right, with associated bilateral neural foraminal stenosis L4-5: Vacuum disc formation and posterior osteophyte. Prominent bilateral facet hypertrophy, left gre ater than right, with osteophyte encroachment on the neural foramina and bilateral neural foraminal stenosis. L5-S1: Disc space narrowing. Bilateral facet hypertrophy. No osseous cause of significant central can al or neural foraminal stenosis. No discrete lytic or blastic bone lesion. No acute fracture. IMPRESSION: Prominent multilevel degenerative change. No acute fracture. Numerous extraspinal findings, including hypodensities within the partially imaged liver, which could represent hypodense liver lesions on the basis of malignancy. CODE T
[2019-01-10] MEDS ORDERED: Dextrose 5% in Water 1,000 ML IV PRN (21:56)
[2019-01-10] MEDS ORDERED: Dextrose 50% Abboject 50 ML SYRINGE SLOW IVP PRN (21:56)
[2019-01-10] MEDS ORDERED: Heparin 10,000 UNITS/ 10 ML VIAL SLOW IVP SCH (22:00)
[2019-01-10] MEDS ORDERED: Heparin 25,000 units/D5W 500 ML IV SCH (22:00)
[2019-01-10] MEDS ORDERED: Bisacodyl 5 MG TAB PO PRN (22:02)
[2019-01-10] MEDS ORDERED: Ondansetron PF 4 MG/2 ML Vial IVP PRN ×2 (22:02)
[2019-01-10] MEDS ORDERED: Benzonatate 100 MG CAP PO PRN (22:02)
[2019-01-10] MEDS ORDERED: Senokot S 8.6-50 MG TAB PO PRN ×2 (22:02)
[2019-01-10] MEDS ORDERED: Calcium Carbonate 500 MG ChewTAB PO PRN (22:02)
[2019-01-10] MEDS ORDERED: Diabetic Tussin 200 MG/10 ML UDCUP PO PRN (22:02)
[2019-01-10] MEDS ORDERED: cloNIDine 0.1 MG TAB PO PRN (22:02)
[2019-01-10] MEDS ORDERED: Acetaminophen 325 MG TAB PO PRN (22:02)
[2019-01-10] MEDS ORDERED: HYDROcodone/Acetaminophen 5/325 mg Tablet ONE (22:02)
[2019-01-10] MEDS ORDERED: Nitroglycerin 0.4 MG TAB (25 Tab Bottle) SL PRN (22:02)
[2019-01-10] MEDS ORDERED: hydrALAZINE 20 MG/ML VIAL SLOW IVP PRN (22:02)
[2019-01-10 22:06] LABS: Troponin I 0.046 ng/mL (< 0.028)
[2019-01-10] MEDS ORDERED: Ondansetron PF 4 MG/2 ML Vial ONE (22:10)
[2019-01-10 23:26] LABS: Hemoglobin 12.2 g/dL (14.0-18.0); Platelet Count 73 thou/uL (130-400)
[2019-01-10 23:36] LABS: Bilirubin Negative (Negative); Blood, Urine Small (Negative); Clarity CLOUDY (Clear); Glucose, Urine (Dipstick) 100 mg/dL (Negative); Leukocyte Trace (Negative); Nitrite Negative (Negative); Protein, Urine (Dipstick) Negative (Neg-Trace); Specific Gravity, Urine 1.009 (1.002-1.036); Urobilinogen 0.2 mg/dL (0.2-1.0); pH, Urine 5.5 (5.0-9.0)
[2019-01-10 23:38] LABS: Bacteria/HPF 4+ HPF (None Seen); Hyaline Casts/LPF 0-3 HYALINE CAST LPF (0-3 Hyaline); Pathc Cast-AUWi Flag 0.27 (0-2.49); RBC/HPF 0-3 HPF (0-3); Squamous Epithelial None Seen HPF (0-3)
[2019-01-11 01:03] VITALS: BMI 22.8
[2019-01-11 01:03] LABS: Troponin I 0.041 ng/mL (< 0.028)
--- NOTE | 2019-01-11 02:14 | HP ---
PRIMARY CARE PHYSICIAN: Out of town. PRIMARY ONCOLOGIST: Bonnie Forman MD PAIN MEDICATION DOCTOR: Kole Robertson MD HISTORY OF PRESENTING ILLNESS: Marce is an 83-year-old male with known history of pancreatic cancer with questionable status of worsening versus in remission, as well as history of diabetes, hypertension, and chronic vertebral fractures under the care of Dr. Robertson for pain control, who presented to the emergency room with complaints of swelling in his right leg. History is mainly obtained by the patient himself, who is somewhat of a poor historian. History is supplemented by his son, who is present at the bedside. Electronic medical records have been reviewed in detail. Mr. Zheng reports that he has been feeling poorly for the last 3 or 4 days with poor appetite, abdominal pain, and worsening swelling of his right leg. He has chronic pain because of 2 vertebral fractures and takes 10 mg of hydrocodone every 4 hours and feels that it has not been working very well. He felt thirsty and had incontinence of urine and he reports that for some reason, he has been having that lately. He denies any fever, chills, nausea, or vomiting. He denies any diarrhea. He denies any chest pain or shortness of breath. In the emergency room, he was saturating 99% on room air with a blood pressure of 116/66 and a pulse of 95. His further examination reveals edema in the right lower extremity. So, he underwent a lower extremity ultrasound, which showed extensive right lower extremity DVT. He was suspected clinically to have PE as well, but could not get a CT angio of the chest because of elevated creatinine. He is now being admitted to the hospital for treatment and evaluation of DVT. With regard to his history of pancreatic cancer, first he told me that it is in remission. He reports that he was last seen by his oncologist in September and was told that there was nothing that could be done and he should consider hospice. He has had two rounds of chemotherapy finishing last year and still has a MediPort. He reports that he stopped going to cancer clinic and is now followed up by Dr. Robertson, the [facility] for his pain in the back. However, he has been reporting more and more abdominal pain, now with poor appetite. In the emergency room, he was found to have elevated total bilirubin of 3.3, which was 0.6 in September 2015. He also has elevated alkaline phosphatase to over 900, which was 350 in September. His cardiac enzymes were also elevated with CK-MB of 7.3, troponin 0.048, but elevated total creatine kinase at 319 as well. His platelet count was found to be 90 in the emergency room with baseline normal around 100. His sodium was also found to be low at 125 and creatinine of 1.53 with estimated GFR of 44. His baseline creatinine is 0.8. He was started on heparin drip in the ER for the DVT with possible diagnosis of pulmonary embolism. He is now being admitted to telemetry unit for further workup and treatment. PAST MEDICAL HISTORY: 1. 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 2. Chronic vertebral fractures and chronic pain. 3. Diabetes mellitus. 4. Hypertension. PAST SURGICAL HISTORY: 1. History of Whipple surgery. 2. Pancreatic stent for palliative obstructive jaundice in [place]. 3. Back surgery. 4. Bilateral knee replacement. 5. Pacemaker placement. SOCIAL HISTORY: He is and lives with his . He has no history of drug, tobacco, or alcohol abuse. FAMILY HISTORY: No significant family history of premature coronary artery disease or stroke. No family history of cancer. ALLERGIES: NO KNOWN MEDICATION ALLERGIES. HOME MEDICATIONS: As per the ER record, he takes followin. Creon 36,000 units three times a day. 2. Losartan/hydrochlorothiazide 100 mg/25 mg daily. 3. Levothyroxine 25 mcg a day. 4. Amlodipine 5 mg, unknown time. 5. Bumetanide 2 mg daily. 6. Gabapentin 300 mg, unknown frequency. CODE STATUS: Do not resuscitate or intubate. Discussed with the patient. REVIEW OF SYSTEMS: A 14-point review of systems is done, it is negative except for those mentioned in the history and physical. PHYSICAL EXAMINATION: VITAL SIGNS: Upon presentation; blood pressure 116/66, pulse of 95, respirations 15, temperature 97.3, and saturating 99% on room air. GENERAL: He appears thin, cachectic, and jaundiced, but in no acute distress. He is awake, alert, and oriented x3. Son is at bedside. HEENT: Mild scleral icterus is noticed. Mucous membrane is slightly dry. No oropharyngeal exudate or erythema. Head is normocephalic and atraumatic. Pupils are equal and reactive to light and accommodation. Extraocular movements are intact. NECK: Supple without any lymphadenopathy, JVD, or bruit. CHEST: Clear to auscultation without any wheezing, rales, or rhonchi. Rate and rhythm are regular without any murmurs, rubs, or gallops. ABDOMEN: Soft, nondistended, mildly tender to palpation with deep palpation. He has incisional hernia around the umbilicus, which is easily reducible. EXTREMITIES: Extensive pitting edema extending from his toe all the way up his thigh, which is indurated without any erythema or warmth. More so on the right lower extremity. No edema in the left lower extremity. NEUROLOGIC: Nonfocal. SKIN: Free of any rashes or bruises. Feels warm and dry to touch. PSYCHIATRIC: Normal affect. LABORATORY DATA: CBC shows WBCs 11.2 with 34% bands, hemoglobin is 11.5, and platelet count of 90. PTT 44. Serum chemistry shows sodium of 124, chloride 91, bicarbonate 20, creatinine 1.53, and blood sugar 334. Total bilirubin 3.3, AST 46, ALT normal, alkaline phosphatase 979. Creatine kinase 319. CK-MB 7.3. Troponin 0.048 with repeat troponin of 0.046. DIAGNOSTIC STUDIES: 1. Chest x-ray by my review shows no evidence of pulmonary infiltrate, edema, or effusion. He has a pacing device and a Port-A-Cath. Lumbar spinal CT was done in the emergency room, which does not show any acute fractures by my review. 2. Lower extremity Doppler ultrasound of the bilateral lower extremity shows extensive occlusive DVT of the right lower extremity within the right common femoral; femoral vein; profunda femoral vein and the popliteal vein. IMPRESSION AND PLAN: 1. Right lower extremity deep venous thrombosis. This is likely secondary to the patient's diagnosis of metastatic pancreatic cancer, which makes him very susceptible. He was started on IV heparin drip in the emergency room after receiving a bolus. We will continue this for now and monitor PT, PTT, and platelet counts closely. The patient has low platelet count to start with, but unfortunately at this time, he needs a heparin drip, which seems to be the safest anticoagulant option because of the antidote availability and because of quick on and quick off action. We will also follow the H and H and platelet count closely along and we will also check and rule out occult gastrointestinal bleed with the stool testing. The patient most likely can have a pulmonary embolism, but at this time, his creatinine hampers checking the CT angio. It also will not change the management as he will be on the IV heparin for his deep venous thrombosis any ways. I have discussed all of this with the patient and his son extensively at bed and they agree with the plan. 2. Hyponatremia, this is hypochloremic and associated with renal insufficiency: At this time, it suggests dehydration, which is consistent with his history of poor p.o. intake in the last few days. He will be started on gentle IV fluid hydration with saline, and we will monitor his sodium numbers very closely. Avoid too quick of a correction. We will also consult Nephrology for hyponatremia and acute renal insufficiency. This is also augmented by his use of hydrochlorothiazide and Demodex. We will hold both of them for now. 3. Acute kidney insufficiency, this is secondary to poor p.o. intake as well as his use of diuretics. We will hold the diuretic and JERRY inhibitor/ARB for now and resuscitate with IV fluids. Monitor closely. 4. Leukocytosis with left shift and bandemia. We will check a urinalysis as it is suspected that he most likely has urinary tract infection given his urinary incontinence and abdominal pain. Start antibiotics as appropriate. 5. Elevated troponin. This is likely demand ischemia/type 2 myocardial infarction from ongoing deep venous thrombosis. Also, infection like a urine infection can also not be ruled out. We will continue to trend serial cardiac enzymes. Avoid any further anti-platelet agent like in the form of aspirin given his low platelet count. 6. Hyperbilirubinemia with elevated alkaline phosphatase. This is suspicious for recurring or worsening liver metastasis or obstructive jaundice. I have discussed this possibility with Mr. Zheng and at this time, he seems somewhat dismissive of the fact. We will request consultation with Oncology to follow along. We will obtain a right upper quadrant ultrasound to rule out obstructive cholecystitis. 7. Diabetes mellitus. We will hold his home medications for now because of erratic oral intake. Start him on insulin sliding scale with frequent Accu-Cheks. 8. Metastatic pancreatic cancer as above. We will request consultation with his oncologist while in the hospital. The patient is a DNR, but it feels like that he does not understand the severity of his diagnosis. We will continue pain control at this time. 9. Chronic vertebral fractures. Pain control as above. 10. Code status: Do not resuscitate or intubate as above. DISPOSITION: Mr. Zheng is currently being admitted to telemetry unit for right lower extremity DVT as well as multiple other issues as listed above. Estimated length of stay at this time is at least 2 to 3 midnights. Further management will depend upon his clinical course. Job ID: [id number]
[2019-01-11] MEDS: Sodium Chloride 0.9% 1,000 ML IV SCH ×2 (02:20→12:21)
[2019-01-11] MEDS: HumaLOG 300 UNITS/3 ML VIAL SC PRN ×2 (02:20→20:43)
[2019-01-11 05:23] LABS: #Lymphocytes 1.2 thou/uL (1.20-3.40); #Monocytes 1.4 thou/uL (0.11-0.59); #Neutrophils 7.7 thou/uL (1.40-6.50); %Basophils 0.1 % (0.0-1.0); %Eosinophils 0.1 % (0.0-10.0); %Lymphocytes 12.1 % (21.0-51.0); %Neutrophils 74.7 % (42.0-75.0); Hemoglobin 10.9 g/dL (14.0-18.0); Mean Corpuscular HGB CONC 33.8 g/dL (32.0-36.0); Mean Corpuscular Hemoglobin 36.5 pg (27.0-31.0); Mean Platelet Volume 9.5 fL (7.4-10.4); Platelet Count 79 thou/uL (130-400); RBC Distribution Width 14.1 % (11.5-14.5); Red Blood Cell (RBC) Count 2.99 mill/uL (4.70-6.10); White Blood Cell (WBC) Count 10.3 thou/uL (4.8-10.8)
[2019-01-11] MEDS: Levothyroxine Sodium 25 MCG TAB PO SCH (05:24)
[2019-01-11 05:37] LABS: Anion Gap 13 mmol/L (10-20); BUN (Urea Nitrogen) 24 mg/dL (8.4-25.7); Calc. Creatinine Clearance 57 mL/min (70-130); Calcium 8.1 mg/dL (7.8-10.44); Carbon Dioxide 22 mmol/L (23-31); Chloride 95 mmol/L (98-107); Estimated GFR-MDRD 68; Glucose 267 mg/dL (83-110); Potassium 4.2 mmol/L (3.5-5.1); Sodium 126 mmol/L (136-145)
[2019-01-11 05:42] LABS: PTT Greater than 250.0 SEC (22.9-36.1)
--- NOTE | 2019-01-11 08:45 | ULT ---
GALLBLADDER ULTRASOUND: INDICATION: History of liver metastasis with hyperbilirubinemia. FINDINGS: There is a cirrhotic morphology of the liver with perihepatic ascites. Focal region of altered echot exture of the liver does indicate an intrinsic mass. The gallbladder is surgically absent. No abnor mal biliary ductal dilatation. Incidental note of right renal cyst. IMPRESSION: 1. Cirrhotic morphology of the liver with an intrinsic mass indicated sonographically. This may be further assessed with contrast enhanced CT examination. 2. Perihepatic ascites. 3. Renal cyst. POS: [facility]
[2019-01-11] MEDS: Famotidine 20 MG TAB PO SCH (08:53)
[2019-01-11] MEDS: Pancrelipase DR 12000 1 CAP PO SCH ×3 (08:53→18:38)
[2019-01-11] MEDS: Gabapentin 300 MG CAP PO SCH (08:53)
[2019-01-11 12:28] LABS: Anion Gap 10 mmol/L (10-20); BUN (Urea Nitrogen) 23 mg/dL (8.4-25.7); Calc. Creatinine Clearance 62 mL/min (70-130); Carbon Dioxide 23 mmol/L (23-31); Chloride 96 mmol/L (98-107); Estimated GFR-MDRD 75; Glucose 259 mg/dL (83-110); Potassium 4.4 mmol/L (3.5-5.1); Sodium 125 mmol/L (136-145)
--- NOTE | 2019-01-11 13:27 | CON ---
DATE OF CONSULTATION: SUBJECTIVE: An 83-year-old gentleman being seen for hyponatremia. REASON FOR CONSULTATION: hyponatremia. HISTORY OF PRESENT ILLNESS: An 83-year-old gentleman, who presented to the hospital for swelling in his legs. The patient was noted to have a sodium of 126. I was contacted. The patient also has had chronic pain, which is not controlled. PAST MEDICAL HISTORY: Significant for pancreatic cancer with liver metastasis, unable to tolerate chemotherapy; history of vertebral fracture; chronic pain; diabetes mellitus; hypertension; history of Whipple surgery; history of hernia; history of back surgery; knee replacement; and pacemaker placement. SOCIAL HISTORY: No alcohol or drug use. FAMILY HISTORY: Negative for ESRD. ALLERGIES: REVIEWED. MEDICATIONS: Home medications list reviewed. Hospital medications list reviewed. REVIEW OF SYSTEMS: Fifteen-point review of system was performed and negative except for positives noted above. NECK: No swelling or lumps. NOSE: No epistaxis or discharge. EYES: No diplopia or pain. MUSCULOSKELETAL: No joint pain. NEUROPSYCHIATRIC SYSTEMS: No suicidal ideation. No ideation. SKIN: Denies any rash or ulcer. CONSTITUTIONAL: No fever or chills. PHYSICAL EXAMINATION: CONSTITUTIONAL: On exam, the patient is awake and alert. VITAL SIGNS: Afebrile, pulse 75, breathing 16, and blood pressure 170/75. GENERAL APPEARANCE AND MENTAL STATUS: Fair. HEAD/NECK: Normocephalic. Atraumatic. EYES: EOMI. No deformity. EARS: Clear. No ulcers. NOSE: Intact. No lesions. MOUTH: Clear. No discharge. THROAT: Clear. No exudate. LUNGS: Clear. No crackles. CARDIAC: S1, S2. No rub. ABDOMEN: Benign. Bowel sounds positive. GENITALIA/RECTUM: Huynh absent. BACK/EXTREMITIES: Edema 0+. NEUROLOGICAL: Alert and motor intact. LABORATORY DATA: Labs show sodium 126. ASSESSMENT AND RECOMMENDATIONS: 1. Hyponatremia due to syndrome of inappropriate antidiuretic hormone secretion and poor protein intake as well as chronic pain, syndrome of inappropriate antidiuretic hormone. 2. Hypertension, stable. 3. Anemia, stable. 4. Chronic kidney disease, stable. No indication for hypertonic saline. We recommend 800 mL of fluid restriction. The patient wants to follow hospice. Job ID: [id number]
--- NOTE | 2019-01-11 14:04 | CON ---
DATE OF CONSULTATION: REASON FOR CONSULTATION: DVT and pancreatic cancer. HISTORY OF PRESENT ILLNESS: An 83-year-old male with pancreatic cancer status post resection and chemotherapy, currently not on treatment, presenting with right leg swelling. The patient is a poor historian. The patient has been complaining of leg swelling, poor appetite, abdominal pain, and pain in his right leg over the last few days. He has chronic back pain from vertebral fractures and is receiving care under Dr. Robertson for that. He denies significant pain in his right leg. He denies any significant shortness of breath or chest pain at this time. On presentation to the ER, he was found to have an extensive right lower extremity DVT and was started on heparin. CT angio of the chest was not done because of elevated creatinine. The patient's pancreatic cancer was treated with Whipple and partial omentectomy in November 2016. He received chemotherapy with Gemzar and Abraxane along with radiation and Xeloda and was frequently FOLFIRINOX with near complete response on CT scan in August 2018. In September 2018, he declined any further treatment and was referred to hospice by Dr. Forman. The patient did not think he needed hospice since his disease had a complete response and he has not followed up with Dr. Forman in the last four months. The patient has had an ultrasound that confirms recurrence of disease in the liver and I was consulted to speak to the patient. The patient is unsure if he wants to have any further treatment because chemotherapy made him so sick and he says he would rather from the cancer. I discussed hospice and chemotherapy with the patient. He is unsure what he will do at this time and wants to discuss with his . REVIEW OF SYSTEMS: Ten-point review of systems negative except as per HPI. PAST MEDICAL HISTORY: Pancreatic cancer, vertebral fractures, diabetes, and hypertension. PAST SURGICAL HISTORY: Whipple, back surgery, bilateral knee replacement, pacemaker placement, and MediPort. SOCIAL HISTORY: , lives with his . No tobacco or alcohol. FAMILY HISTORY: No family history of cancer. ALLERGIES: NO KNOWN MEDICATION ALLERGIES. CURRENT MEDICATIONS: Reviewed. PHYSICAL EXAMINATION: VITAL SIGNS: Temperature 98.6, pulse 75, respirations 18, saturating 100% on room air, and blood pressure 117/75. GENERAL APPEARANCE: The patient lying in bed, in no acute distress. HEENT: Normocephalic and atraumatic. Very minimal scleral icterus noted. NECK: Supple. CHEST: S1 and S2. Regular rhythm and rate. RESPIRATIONS: Clear to auscultation bilaterally. ABDOMEN: Soft nondistended with mild tenderness in the epigastric area with palpation. EXTREMITIES: 3+ pitting edema in the right lower extremity, minimal on the left. NEUROLOGIC: Nonfocal. SKIN: No rashes. PSYCHIATRIC: Awake, alert, and oriented x3. LABORATORY DATA: White blood cells 10.3, hemoglobin 10.9, and platelets 79. Sodium 126, potassium 4.2, BUN 24, and creatinine 1.04. CK-MB 7.3 and troponin peaked at 0.048. IMAGING DATA: Venogram dated January 10, 2019 shows extensive DVT involving right lower extremity in the right common femoral vein, femoral vein, profunda femoral vein , and popliteal vein. No DVT on the left. Lumbar spine CT shows prominent multilevel degenerative change without an acute fracture and numerous extra-spinal findings including hypodensities and the partially imaged liver. Abdominal ultrasound dated January 11, 2019 shows cirrhotic morphology of liver with an intrinsic mass. ASSESSMENT AND PLAN: An 83-year-old male with metastatic pancreatic cancer with complete response to FOLFIRINOX on last scan in August 2018, currently off treatment for 4 to 5 months due to declining further treatments, presenting with new deep venous thrombosis of the right lower extremity and recurrence of his pancreatic cancer in the liver. The patient may continue on heparin anticoagulation at this time, and upon discharge to be sent home on Xarelto or Eliquis and should continue this lifelong as long as he does not have any adverse bleeding events. Regarding his pancreatic cancer, the ultrasound is suspicious along with the imaging of the liver seen on the CT of the spine for recurrence of his pancreatic cancer in the liver. I discussed with him and his son that if his kidneys continue to improve, we could do CT chest, abdomen, and pelvis with contrast to evaluate the extent of the metastatic disease, however, this would not be needed if he still does not want any treatment. I discussed with him that he had a very good response to the last chemotherapy and we could use a different chemotherapy that he may or may not tolerate, and he would like to discuss with his . At this time, we can hold off on the CAT scans with contrast until the patient had his family discussion. If the patient decides that he does not want any further treatments then I would strongly recommend hospice at this time as his cancer will continue to progress. I will discuss with the patient's primary oncologist, Dr. Forman. Thank you for this consult. Job ID: [id number] DANIELA
[2019-01-11] MEDS ORDERED: Morphine 4 MG/ML VIAL SLOW IVP PRN (14:06)
[2019-01-11] MEDS ORDERED: fentaNYL 50 mcg/hour Patch TD SCH (16:00)
[2019-01-11 17:39] LABS: Anion Gap 11 mmol/L (10-20); BUN (Urea Nitrogen) 23 mg/dL (8.4-25.7); Calc. Creatinine Clearance 62 mL/min (70-130); Carbon Dioxide 21 mmol/L (23-31); Chloride 95 mmol/L (98-107); Estimated GFR-MDRD 75; Glucose 291 mg/dL (83-110); Potassium 4.3 mmol/L (3.5-5.1); Sodium 123 mmol/L (136-145)
[2019-01-11] MEDS: Diltiazem 125 MG in Sodium Chloride 0.9% 100 ML IVPB SCH (18:01)
[2019-01-11] MEDS: Metoprolol Tartrate 25 MG TAB PO SCH (20:42)
[2019-01-11] MEDS: Heparin 25,000 units/D5W 500 ML IVPB SCH (22:36)
--- NOTE | 2019-01-11 22:52 | CON ---
DATE OF CONSULTATION: 01/11/2019 INDICATION FOR CONSULTATION: An 83-year-old gentleman with new onset atrial fibrillation. HISTORY OF PRESENT ILLNESS: This 83-year-old gentleman, who has a history of metastatic pancreatic cancer, who has undergone partial resection and also chemotherapy, has refused further chemotherapy. It appears that he has had no recurrence of his disease with possibly some mets to the liver. He refuses to undergo further chemotherapy for about a week now. He has noticed he has had bilateral lower extremity edema and the right leg became more swollen on the left, very heavy and painful. He presented to the emergency room, was found to have DVT in the left lower extremity. He was treated with IV heparin and then today he got up, had a bath and when he came back and actually his heart rate has been doing quite well. He does have a pacemaker and had been A paced, V sensed, and after having a bath today he developed tachycardia and has gone into atrial fibrillation with rapid ventricular response. It is quite possible that he has had a pulmonary embolus as a subsequent complication from his DVT. Obviously, he has a hypercoagulable state due to his pancreatic cancer. He is a DNR patient. The venous study showed the extensive DVT of the right lower extremity is in the right common femoral vein, profunda femoral vein and popliteal vein. He denies any chest pain. He has been somewhat short of breath. He does have some pain in the left scapular area. PAST MEDICAL HISTORY: Significant for pacemaker insertion, uncertain of the etiology of why the pacemaker was inserted. He has diabetes and vertebral fractures. He has history of pancreatic cancer with recurrence. He has undergone a Whipple procedure for this. He has had bilateral knee replacements. He has had back surgery. He has a MediPort in the right anterior chest. SOCIAL HISTORY: He is . He has children, who are alive and well. He has no alcohol or tobacco abuse. FAMILY HISTORY: Unremarkable at this time. REVIEW OF SYSTEMS: Please refer to the notes already dictated, but otherwise he has not had any significant complaints except what is noted in the history of present illness. ALLERGIES: NONE. MEDICATIONS: At home, included: 1. Pancrelipase. 2. Levothyroxine. 3. Gabapentin. 4. Losartan/hydrochlorothiazide. 5. Bumetanide. Since being in the hospital, he has been started on heparin IV. He has also been given Pepcid. He is on Neurontin and fentanyl 50 mcg patch. He is also on levothyroxine. He has been given metoprolol 25 mg b.i.d. and pancrelipase. He is on p.r.n. nitroglycerin. He is on other p.r.n. medications. LABORATORY DATA: Shows a sodium of 123, potassium of 4.3, creatinine 0.96. Blood sugar was 291. His calcium level was 8. His troponin I was slightly elevated, but not be unexpected with DVTs and atrial fibrillation. His troponin I was 0.048, is now decreased down to 0.041. His WBC is 10.3, hemoglobin was 10.9, hematocrit 32. His platelet count is at 79,000. He has 4+ bacteria in the urine. PHYSICAL EXAMINATION: GENERAL: Reveals a very ill-appearing gentleman. He is jaundiced. HEENT: Unremarkable. CHEST: Clear. I did not hear rales, rhonchi, or wheezing. He has a well-healed surgical incision over the pacemaker site in the left infraclavicular area. CARDIOVASCULAR: Reveals he is tachycardic, somewhat irregular. I did not hear any gross murmurs, heaves, thrills, bruits, or rubs. ABDOMEN: Soft. He does have a hernia just to the left of the midline. He has a Port-A-Cath in the right upper chest area. He has positive bowel sounds. EXTREMITIES: Showed 2+ lower extremity in the left lower leg and 3+ of the right lower leg without any significant tenderness. Pedal pulses are present, but somewhat decreased. NEUROLOGIC: The patient appears to be somewhat confused. He did receive morphine earlier. SKIN: Warm and dry at this time. IMPRESSION: An elderly 83-year-old patient with metastatic pancreatic cancer, who refuses to undergo further chemotherapy, who has developed now atrial fibrillation with rapid ventricular response. This may be due to the patient perhaps suffered a underlying pulmonary embolus due to large deep venous thrombosis. He has been placed on IV heparin. I would agree to this. We will try to control the heart rate. We will start him on IV diltiazem to see if we can convert him quickly back to normal sinus rhythm, and then we will continue the anticoagulation, we need to be very careful with his low platelet count and his anemia, but the patient most likely will go home on hospice, but we will need to control the heart rate. I will ask the pacemaker wraps if we can evaluate the pacemaker to see if he has had any earlier episodes of atrial fibrillation and to determine if the pacemaker function remains normal or if any adjustments need to be made. He said he usually has checked once a year by Dr. Roland in [place] once he sees the concrete block mason. History of pancreatic cancer with most likely metastasis. Deep venous thrombosis, which most likely is a reflection of the pancreatic cancer and he may have suffered now a pulmonary embolus. He could undergo a CT angiogram for evaluation of pulmonary embolus, however the treatment would be the same and we will assume he needs to continue on the anticoagulation. We are more than happy to continue to follow the patient with you, but at this time, we will just continue with anticoagulation and rate control for the atrial fibrillation. Job ID: [id number]
[2019-01-12] MEDS: Levothyroxine Sodium 25 MCG TAB PO SCH (05:27)
[2019-01-12 06:41] LABS: #Lymphocytes 1.2 thou/uL (1.20-3.40); #Monocytes 1.8 thou/uL (0.11-0.59); #Neutrophils 10.3 thou/uL (1.40-6.50); %Basophils 0.1 % (0.0-1.0); %Eosinophils 0.2 % (0.0-10.0); %Lymphocytes 9.2 % (21.0-51.0); %Monocytes 13.6 % (0.0-10.0); %Neutrophils 76.9 % (42.0-75.0); Hemoglobin 11.1 g/dL (14.0-18.0); Mean Corpuscular HGB CONC 31.7 g/dL (32.0-36.0); Mean Corpuscular Hemoglobin 35.4 pg (27.0-31.0); Mean Platelet Volume 9.4 fL (7.4-10.4); Platelet Count 82 thou/uL (130-400); RBC Distribution Width 14.3 % (11.5-14.5); Red Blood Cell (RBC) Count 3.13 mill/uL (4.70-6.10); White Blood Cell (WBC) Count 13.4 thou/uL (4.8-10.8)
[2019-01-12 07:06] LABS: ALT (SGPT) 36 U/L (8-55); AST (SGOT) 48 U/L (5-34); Albumin 2.3 g/dL (3.4-4.8); Alkaline Phosphatase 685 U/L (40-150); Anion Gap 14 mmol/L (10-20); BUN (Urea Nitrogen) 23 mg/dL (8.4-25.7); Bilirubin, Total 2.7 mg/dL (0.2-1.2); Calc. Creatinine Clearance 67 mL/min (70-130); Calcium 8.3 mg/dL (7.8-10.44); Carbon Dioxide 21 mmol/L (23-31); Chloride 96 mmol/L (98-107); Estimated GFR-MDRD 81; Globulin 3.7 g/dL (2.4-3.5); Glucose 240 mg/dL (83-110); Potassium 4.8 mmol/L (3.5-5.1); Sodium 126 mmol/L (136-145)
[2019-01-12] MEDS: Pancrelipase DR 12000 1 CAP PO SCH ×3 (08:57→16:30)
[2019-01-12] MEDS: Metoprolol Tartrate 25 MG TAB PO SCH ×2 (08:57→20:57)
[2019-01-12] MEDS: HumaLOG 300 UNITS/3 ML VIAL SC PRN (08:58)
[2019-01-12] MEDS: Gabapentin 300 MG CAP PO SCH (08:58)
[2019-01-12] MEDS: Famotidine 20 MG TAB PO SCH (08:58)
[2019-01-12] MEDS: Heparin 10,000 UNITS/ 10 ML VIAL SLOW IVP SCH ×2 (10:08→20:49)
[2019-01-12] MEDS: Morphine 4 MG/ML VIAL SLOW IVP PRN (11:23)
--- NOTE | 2019-01-12 12:26 | PDOC.CTH ---
Cardiology Progress Note - Subjective The pt seen and examined. No overnight events. No cardiac complaints. - Objective Vital Signs Temp Pulse Pulse Pulse Resp BP BP 01/12/19 12:00 98.1 F 70 18 01/12/19 09:52 75 72 130/64 113/57 L 01/12/19 08:52 97.7 F 70 18 01/12/19 03:12 98.4 F 71 17 BP BP Pulse Ox 01/12/19 12:00 127/69 99 01/12/19 09:52 01/12/19 08:52 108/58 L 100 01/12/19 03:12 129/63 98 Weight 168 lb 11.2 oz 01/11/19 01/12/19 01/13/19 06:59 06:59 06:59 Intake Total 440 1155.3 Output Total 400 250 Balance 40 905.3 - Physical Examination General/Neuro: alert & oriented x3 Neck: no JVD present Lungs: other: (diminished at bases) Heart: RRR Abdomen: soft Extremities: other: (2+ pitting BLE edema) - Telemetry Telemetry Rhythm: A paced and V senced - Labs Result Diagrams: 01/12/19 06:26 01/12/19 06:26 Troponin/CKMB CK-MB (CK-2) 7.3 ng/mL (0-6.6) H* 01/10/19 17:46 Troponin I 0.041 ng/mL (< 0.028) H 01/11/19 00:27 - Assessment/Plan 1. New onset Afib with RVR - Well controlled HR with Diltiazem 5mg/h; on Heparin drip and BBlocker 2. RLE DVT - On Heparin drip 3. Hyponatremia - on 800ml fluid restriction 4. MARIA VICTORIA - stable 5. DM type 2 - 6. Hx of PM placement 7. Metastatic Pancreatic cancer - the pt refused further chemotherapy MAR reviewed pt. seen and eval. by me. I agree with the A/P by the HEATING AND COOLING SYSTEMS ENGINEER. Pt. is resting comfortably at this time. Last night he was confused. Evaluation of the pacemaker did not indicate any previous atrial fibrillation. RRR.Clear chest anteriorly. Change IV diltiazem to po. Review of Systems - Review of Systems Constitutional: reports: no symptoms reported EENTM: reports: no symptoms reported Respiratory: reports: no symptoms reported Cardiac (ROS): reports: no symptoms reported ABD/GI: reports: no symptoms reported : reports: no symptoms reported Musculoskeletal: reports: no symptoms reported
--- NOTE | 2019-01-12 12:36 | PRG ---
DATE OF SERVICE: 01/12/2019 SUBJECTIVE: An 83-year-old male being seen for hyponatremia. The patient denied nausea, vomiting, or chest pain. OBJECTIVE: CONSTITUTIONAL: The patient is awake and alert. VITAL SIGNS: Afebrile, . GENERAL APPEARANCE AND MENTAL STATUS: Fair. HEAD/NECK: Normocephalic. Atraumatic. EYES: EOMI. No deformity. EARS: Clear. No ulcers. NOSE: Intact. No lesions. MOUTH: Clear. No discharge. THROAT: Clear. No exudate. LUNGS: Clear. No crackles. CARDIAC: S1, S2. No rub. ABDOMEN: Benign. Bowel sounds positive. GENITALIA/RECTUM: Huynh absent. BACK/EXTREMITIES: Edema 0+. NEUROLOGICAL: Alert and motor intact. SKIN: LYMPHATICS: LABORATORY DATA: Reviewed. 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 Hypertension, stable. I would recommend 1000 mL fluid restriction. I will sign off on this patient as the patient is going on hospice. Job ID: [id number]
--- NOTE | 2019-01-12 14:58 | PDOC.PN ---
- Subjective Encounter Start Date: 01/11/19 Encounter Start Time: 15:20 Subjective: got confused for a bit but currently oriented -: is moving all extremities -: no chest pain or palp but telemetry shows afib - Objective Resuscitation Status - Order Detail: 01/10/19 23:06 Resuscitation Status Routine Resuscitation Status: DNAR: NO Resuscitation Discussed with: discussed with pt JULITO Reviewed: Yes Vital Signs & Weight: Vital Signs (12 hours) Temp Pulse Pulse Pulse Resp BP BP 01/12/19 12:00 98.1 F 70 18 01/12/19 09:52 75 72 130/64 113/57 L 01/12/19 08:52 97.7 F 70 18 01/12/19 03:12 98.4 F 71 17 BP BP Pulse Ox 01/12/19 12:00 127/69 99 01/12/19 09:52 01/12/19 08:52 108/58 L 100 01/12/19 03:12 129/63 98 Weight Admit Weight 168 lb 11.2 oz Weight 168 lb 11.2 oz I&O: 01/11/19 01/12/19 01/13/19 06:59 06:59 06:59 Intake Total 440 1155.3 Output Total 400 250 Balance 40 905.3 Result Diagrams: 01/12/19 06:26 01/12/19 06:26 Additional Labs: Accuchecks 01/12/19 01/12/19 01/11/19 11:08 05:40 20:40 POC Glucose 249 H 261 H 351 H 01/11/19 17:05 POC Glucose 280 H Phys Exam - Physical Examination HEENT: PERRLA, moist MMs Neck: no JVD, supple Respiratory: no wheezing, no rales Cardiovascular: no significant murmur, irregular Gastrointestinal: soft, non-tender, positive bowel sounds Musculoskeletal: pulses present right LE is swollen and tender Neurological: non-focal, moves all 4 limbs Psychiatric: normal affect, A&O x 3 Dx/Plan (1) DVT (deep venous thrombosis) Code(s): I82.409 - ACUTE EMBOLISM AND THOMBOS UNSP DEEP VN UNSP LOWER EXTREMITY Status: Acute Qualifiers: DVT location: lower extremity Affected thrombotic vein of extremity: femoral Chronicity: acute Laterality: right Qualified Code(s): I82.411 - Acute embolism and thrombosis of right femoral vein (2) Hyponatremia Code(s): E87.1 - HYPO-OSMOLALITY AND HYPONATREMIA Status: Acute (3) Afib Code(s): I48.91 - UNSPECIFIED ATRIAL FIBRILLATION Status: Acute Qualifiers: Atrial fibrillation type: paroxysmal Qualified Code(s): I48.0 - Paroxysmal atrial fibrillation (4) DM type 2 (diabetes mellitus, type 2) Status: Chronic Qualifiers: Diabetes mellitus correction insulin use: without executive vice president business development use Diabetes mellitus complication status: with unspecified complications Qualified Code(s) : E11.8 - Type 2 diabetes mellitus with unspecified complications (5) HTN (hypertension) Code(s): I10 - ESSENTIAL (PRIMARY) HYPERTENSION Status: Chronic Qualifiers: Hypertension type: essential hypertension Qualified Code(s): I10 - Essential (primary) hypertension (6) H/O cardiac pacemaker Code(s): Z95.0 - PRESENCE OF CARDIAC PACEMAKER Status: Chronic (7) Hypothyroidism Code(s): E03.9 - HYPOTHYROIDISM, UNSPECIFIED Status: Chronic Qualifiers: Hypothyroidism type: unspecified Qualified Code(s): E03.9 - Hypothyroidism , unspecified (8) Pancreatic cancer Status: Chronic Qualifiers: Pancreatic malignancy location: unspecified Qualified Code(s): C25.9 - Malignant neoplasm of pancreas, unspecified Comment: has liver mets - Plan cardizem 15mg iv push, cardizem drip, d/w -: is on heparin drip -: family to decide cancer treatment going forward -: prognosis guarded -: d/w family at bedside * . Review of Systems - Medications/Allergies Allergies/Adverse Reactions: Allergies Allergy/AdvReac Type Severity Reaction Status Date / Time No Known Drug Allergies Allergy Verified 01/11/19 01:04 Medications: Current Medications Acetaminophen (Tylenol) 650 mg PO Q4H PRN PRN Reason: Headache/Fever/Mild Pain (1-3) Lipase/Protease/Amylase (Arielle Anguiano [id number]) 3 cap PO TID-[facility] Last Admin: 01/12/19 11:23 Dose: Not Given Benzonatate (Tessalon) 100 mg PO Q6H PRN PRN Reason: Cough Bisacodyl (Dulcolax) 10 mg PO DAILYPRN PRN PRN Reason: Constipation Calcium Carbonate (Tums) 1,000 mg PO Q4H PRN PRN Reason: Heartburn or Indigestion Dextrose/Water (Dextrose 50%) 25 gm SLOW IVP PRN PRN PRN Reason: Hypoglycemia Famotidine (Pepcid) 20 mg PO DAILY [facility] Last Admin: 01/12/19 08:58 Dose: 20 mg Fentanyl (Duragesic) 50 mcg TD Q3D [facility] Last Admin: 01/11/19 18:01 Dose: 50 mcg Gabapentin (Neurontin) 300 mg PO DAILY [facility] Last Admin: 01/12/19 08:58 Dose: 300 mg Glucagon (Glucagon) 1 mg IM PRN PRN PRN Reason: Hypoglycemia Guaifenesin (Robitussin Sf) 200 mg PO Q4H PRN PRN Reason: Cough Heparin Sodium (Porcine) (Heparin 1,000 Units/Ml (10 Ml)) 0 units SLOW IVP ASDIR [facility]; Protocol Last Admin: 01/12/19 10:08 Dose: 3,060 units Hydralazine HCl (Apresoline) 10 mg SLOW IVP Q4H PRN PRN Reason: SBP > 180 and HR < 70 Dextrose/Water (D5w) 1,000 mls @ 0 mls/hr IV .Q0M PRN PRN Reason: Hypoglycemia Heparin Sodium/Dextrose (Heparin 25,000 Units/D5w 500 Ml) 500 mls @ 0 mls/hr IVPB INF [facility]; Protocol Last Admin: 01/11/19 22:36 Dose: 500 mls Diltiazem HCl 125 mg/ Sodium (Chloride) 125 mls @ 5 mls/hr IVPB INF [facility]; Protocol Last Admin: 01/11/19 18:01 Dose: 125 mls Insulin Human Lispro (Humalog) 0 units SC .MODERATE SLIDING SC PRN PRN Reason: Moderate Correctional Scale Last Admin: 01/12/19 08:58 Dose: 6 units Insulin Human Lispro (Humalog) 0 units SC .BEDTIME SLIDING SC PRN PRN Reason: Bedtime Correctional Scale Last Admin: 01/11/19 20:43 Dose: 5 units Levothyroxine Sodium (Synthroid) 25 mcg PO 0600 [facility] Last Admin: 01/12/19 05:27 Dose: 25 mcg Metoprolol Tartrate (Lopressor) 25 mg PO BID [facility] Last Admin: 01/12/19 08:57 Dose: 25 mg Morphine Sulfate (Morphine) 2 mg SLOW IVP Q6H PRN PRN Reason: Moderate to Severe Pain (6-10) Last Admin: 01/12/19 11:23 Dose: 2 mg Nitroglycerin (Nitrostat) 0.4 mg SL Q5MIN PRN PRN Reason: Chest Pain Ondansetron HCl (Zofran) 4 mg IVP Q6H PRN PRN Reason: Nausea/Vomiting Senna/Docusate Sodium (Senokot S) 2 tab PO BIDPRN PRN PRN Reason: Constipation Sodium Chloride (Flush - Normal Saline) 10 ml IVF Q12HR [facility] Last Admin: 01/12/19 08:58 Dose: Not Given Sodium Chloride (Flush - Normal Saline) 10 ml IVF PRN PRN PRN Reason: Saline Flush
--- NOTE | 2019-01-12 15:06 | PDOC.PN ---
- Subjective Encounter Start Date: 01/12/19 Encounter Start Time: 08:00 Subjective: no abd pain or nausea -: ate his breakfast -: no palp or chest pain - Objective Resuscitation Status - Order Detail: 01/10/19 23:06 Resuscitation Status Routine Resuscitation Status: DNAR: NO Resuscitation Discussed with: discussed with pt MAR Reviewed: Yes Vital Signs & Weight: Vital Signs (12 hours) Temp Pulse Pulse Pulse Resp BP BP 01/12/19 12:00 98.1 F 70 18 01/12/19 09:52 75 72 130/64 113/57 L 01/12/19 08:52 97.7 F 70 18 01/12/19 03:12 98.4 F 71 17 BP BP Pulse Ox 01/12/19 12:00 127/69 99 01/12/19 09:52 01/12/19 08:52 108/58 L 100 01/12/19 03:12 129/63 98 Weight Admit Weight 168 lb 11.2 oz Weight 168 lb 11.2 oz I&O: 01/11/19 01/12/19 01/13/19 06:59 06:59 06:59 Intake Total 440 1155.3 Output Total 400 250 Balance 40 905.3 Result Diagrams: 01/12/19 06:26 01/12/19 06:26 Additional Labs: Accuchecks 01/12/19 01/12/19 01/11/19 11:08 05:40 20:40 POC Glucose 249 H 261 H 351 H 01/11/19 17:05 POC Glucose 280 H Phys Exam - Physical Examination HEENT: PERRLA, moist MMs Neck: no JVD, supple Respiratory: no wheezing, no rales Cardiovascular: RRR, no significant murmur Gastrointestinal: soft, non-tender, positive bowel sounds Musculoskeletal: pulses present right LE edema, tenderness+ Neurological: non-focal, moves all 4 limbs Psychiatric: normal affect, A&O x 3 Dx/Plan (1) DVT (deep venous thrombosis) Code(s): I82.409 - ACUTE EMBOLISM AND THOMBOS UNSP DEEP VN UNSP LOWER EXTREMITY Status: Acute Qualifiers: DVT location: lower extremity Affected thrombotic vein of extremity: femoral Chronicity: acute Laterality: right Qualified Code(s): I82.411 - Acute embolism and thrombosis of right femoral vein (2) Hyponatremia Code(s): E87.1 - HYPO-OSMOLALITY AND HYPONATREMIA Status: Acute (3) Afib Code(s): I48.91 - UNSPECIFIED ATRIAL FIBRILLATION Status: Acute Qualifiers: Atrial fibrillation type: paroxysmal Qualified Code(s): I48.0 - Paroxysmal atrial fibrillation (4) DM type 2 (diabetes mellitus, type 2) Status: Chronic Qualifiers: Diabetes mellitus snf insulin use: without extermination supervisor use Diabetes mellitus complication status: with unspecified complications Qualified Code(s) : E11.8 - Type 2 diabetes mellitus with unspecified complications (5) HTN (hypertension) Code(s): I10 - ESSENTIAL (PRIMARY) HYPERTENSION Status: Chronic Qualifiers: Hypertension type: essential hypertension Qualified Code(s): I10 - Essential (primary) hypertension (6) H/O cardiac pacemaker Code(s): Z95.0 - PRESENCE OF CARDIAC PACEMAKER Status: Chronic (7) Hypothyroidism Code(s): E03.9 - HYPOTHYROIDISM, UNSPECIFIED Status: Chronic Qualifiers: Hypothyroidism type: unspecified Qualified Code(s): E03.9 - Hypothyroidism , unspecified (8) Pancreatic cancer Status: Chronic Qualifiers: Pancreatic malignancy location: unspecified Qualified Code(s): C25.9 - Malignant neoplasm of pancreas, unspecified Comment: has liver mets - Plan family is opting for home with hospice, pt is in agreement -: they are not sure if they want to continue dvt treatment on dc -: awaiting hospice set up at home for dc plan -: prognosis guarded -: on heparin drip, will dc cardizem drip * . Review of Systems - Medications/Allergies Allergies/Adverse Reactions: Allergies Allergy/AdvReac Type Severity Reaction Status Date / Time No Known Drug Allergies Allergy Verified 01/11/19 01:04 Medications: Current Medications Acetaminophen (Tylenol) 650 mg PO Q4H PRN PRN Reason: Headache/Fever/Mild Pain (1-3) Lipase/Protease/[place] ([place] [id number]) 3 cap PO TID-[facility] Last Admin: 01/12/19 11:23 Dose: Not Given Benzonatate (Tessalon) 100 mg PO Q6H PRN PRN Reason: Cough Bisacodyl (Dulcolax) 10 mg PO DAILYPRN PRN PRN Reason: Constipation Calcium Carbonate (Tums) 1,000 mg PO Q4H PRN PRN Reason: Heartburn or Indigestion Dextrose/Water (Dextrose 50%) 25 gm SLOW IVP PRN PRN PRN Reason: Hypoglycemia Famotidine (Pepcid) 20 mg PO DAILY [facility] Last Admin: 01/12/19 08:58 Dose: 20 mg Fentanyl (Duragesic) 50 mcg TD Q3D [facility] Last Admin: 01/11/19 18:01 Dose: 50 mcg Gabapentin (Neurontin) 300 mg PO DAILY [facility] Last Admin: 01/12/19 08:58 Dose: 300 mg Glucagon (Glucagon) 1 mg IM PRN PRN PRN Reason: Hypoglycemia Guaifenesin (Robitussin Sf) 200 mg PO Q4H PRN PRN Reason: Cough Heparin Sodium (Porcine) (Heparin 1,000 Units/Ml (10 Ml)) 0 units SLOW IVP ASDIR [facility]; Protocol Last Admin: 01/12/19 10:08 Dose: 3,060 units Hydralazine HCl (Apresoline) 10 mg SLOW IVP Q4H PRN PRN Reason: SBP > 180 and HR < 70 Dextrose/Water (D5w) 1,000 mls @ 0 mls/hr IV .Q0M PRN PRN Reason: Hypoglycemia Heparin Sodium/Dextrose (Heparin 25,000 Units/D5w 500 Ml) 500 mls @ 0 mls/hr IVPB INF [facility]; Protocol Last Admin: 01/11/19 22:36 Dose: 500 mls Diltiazem HCl 125 mg/ Sodium (Chloride) 125 mls @ 5 mls/hr IVPB INF [facility]; Protocol Last Admin: 01/11/19 18:01 Dose: 125 mls Insulin Human Lispro (Humalog) 0 units SC .MODERATE SLIDING SC PRN PRN Reason: Moderate Correctional Scale Last Admin: 01/12/19 08:58 Dose: 6 units Insulin Human Lispro (Humalog) 0 units SC .BEDTIME SLIDING SC PRN PRN Reason: Bedtime Correctional Scale Last Admin: 01/11/19 20:43 Dose: 5 units Levothyroxine Sodium (Synthroid) 25 mcg PO 0600 [facility] Last Admin: 01/12/19 05:27 Dose: 25 mcg Metoprolol Tartrate (Lopressor) 25 mg PO BID [facility] Last Admin: 01/12/19 08:57 Dose: 25 mg Morphine Sulfate (Morphine) 2 mg SLOW IVP Q6H PRN PRN Reason: Moderate to Severe Pain (6-10) Last Admin: 01/12/19 11:23 Dose: 2 mg Nitroglycerin (Nitrostat) 0.4 mg SL Q5MIN PRN PRN Reason: Chest Pain Ondansetron HCl (Zofran) 4 mg IVP Q6H PRN PRN Reason: Nausea/Vomiting Senna/Docusate Sodium (Senokot S) 2 tab PO BIDPRN PRN PRN Reason: Constipation Sodium Chloride (Flush - Normal Saline) 10 ml IVF Q12HR [facility] Last Admin: 01/12/19 08:58 Dose: Not Given Sodium Chloride (Flush - Normal Saline) 10 ml IVF PRN PRN PRN Reason: Saline Flush
[2019-01-12] MEDS: Diltiazem 125 MG in Sodium Chloride 0.9% 100 ML IVPB SCH (16:26)
[2019-01-12 18:09] LABS: PTT Greater than 250.0 SEC (22.9-36.1)
[2019-01-12] MEDS: Heparin 25,000 units/D5W 500 ML IVPB SCH (21:36)
[2019-01-12 22:45] LABS: Hemoglobin 11.2 g/dL (14.0-18.0); Platelet Count 112 thou/uL (130-400)
[2019-01-13 02:58] LABS: Band 10 % (5-11); Hemoglobin 11.1 g/dL (14.0-18.0); Hypochromia SLIGHT = 6-15 cells (100X) (0-5/hpf); Lymphocytes 2 % (21-51); MDiff Complete? YES; Mean Corpuscular HGB CONC 31.5 g/dL (32.0-36.0); Mean Corpuscular Hemoglobin 34.6 pg (27.0-31.0); Mean Platelet Volume 8.8 fL (7.4-10.4); Monocytes 8 % (0-10); Neutrophil 80 % (42-75); Platelet Count 116 thou/uL (130-400); RBC Distribution Width 14.2 % (11.5-14.5)
[2019-01-13 03:01] LABS: ALT (SGPT) 29 U/L (8-55); AST (SGOT) 15 U/L (5-34); Albumin 2.3 g/dL (3.4-4.8); Alkaline Phosphatase 638 U/L (40-150); Anion Gap 11 mmol/L (10-20); BUN (Urea Nitrogen) 24 mg/dL (8.4-25.7); Bilirubin, Total 3.2 mg/dL (0.2-1.2); Calc. Creatinine Clearance 70 mL/min (70-130); Calcium 8.2 mg/dL (7.8-10.44); Carbon Dioxide 24 mmol/L (23-31); Chloride 95 mmol/L (98-107); Estimated GFR-MDRD 86; Globulin 3.3 g/dL (2.4-3.5); Glucose 285 mg/dL (83-110); Potassium 4.6 mmol/L (3.5-5.1); Protein, Total 5.6 g/dL (5.8-8.1); Sodium 125 mmol/L (136-145)
[2019-01-13] MEDS: Morphine 4 MG/ML VIAL SLOW IVP PRN ×2 (03:52→13:28)
[2019-01-13] MEDS: Levothyroxine Sodium 25 MCG TAB PO SCH (05:17)
[2019-01-13] MEDS: Metoprolol Tartrate 25 MG TAB PO SCH (10:14)
[2019-01-13] MEDS: Pancrelipase DR 12000 1 CAP PO SCH ×3 (10:15→16:42)
[2019-01-13] MEDS: Famotidine 20 MG TAB PO SCH (10:15)
[2019-01-13] MEDS: Gabapentin 300 MG CAP PO SCH (10:15)
[2019-01-13] MEDS: HumaLOG 300 UNITS/3 ML VIAL SC PRN (11:48)
--- NOTE | 2019-01-13 14:03 | PQF ---
TIARA AUSTIN VINAYA KUMAR MD [id number] CLINICAL DOCUMENTATION IMPROVEMENT CLARIFICATION FORM: ICD-10 Updated PLEASE DO AN ADDENDUM TO THE PROGRESS NOTE WITH ANY DOCUMENTATION UPDATES OR ADDITIONS AND CARRY THROUGH TO DC SUMMARY. THANK YOU. DATE: 01/13/2019 ATTN:DR. SHINE Please exercise your independent, professional judgment in responding to the clarification form. Clinical indicators are provided on the bottom of this form for your review. Please check appropriate box(s): [ ] NSTEMI (NH type I) [ ] NSTEMI due to Demand Ischemia (AMI Type II) [ ] Demand Ischemia without NH [ x] Other diagnosis __type 2 NH sec to afib with rvr and possible pulmonary embolus [ ] Unable to determine In addition, please specify: Present on Admission (POA): [ x ] Yes [ ] No [ ] Unable to determine CLINICAL INDICATORS - SIGNS / SYMPTOMS / LABS 01/10 TROPONIN I 0.048 0.046 0.041 01/11 : H & P (IFRAH) 5). ELEVATED TROPONIN. THIS IS LIKELY DEMAND ISCHEMIA/ TYPE 2 MYOCARDIAL INFARCTION FROM ONGOING DEEP VENOUS THROMBOSIS . NO FURTHER MENTION TO DATE RISK: HX OF DVT'S (H & P) HX OF HTN (H & P) HX OF DM (H & P) TREATMENTS CARDIOLOGY CONSULT CONTINUOUS CARDIAC MONITORING THANK YOU! ANGELICA (This form is maintained as a part of the permanent medical record) 2014 [employer] All Rights Reserved [email or web address] [phone] MTDD
--- NOTE | 2019-01-13 15:01 | PDOC.PN ---
- Subjective Encounter Start Date: 01/13/19 Encounter Start Time: 12:00 Subjective: awake, no abd pain or sob - Objective Resuscitation Status - Order Detail: 01/10/19 23:06 Resuscitation Status Routine Resuscitation Status: DNAR: NO Resuscitation Discussed with: discussed with pt JULITO Reviewed: Yes Vital Signs & Weight: Vital Signs (12 hours) Temp Pulse Resp BP Pulse Ox 01/13/19 11:45 98.2 F 68 18 133/67 95 01/13/19 08:27 97.6 F 69 18 127/60 96 01/13/19 03:57 78 132/67 01/13/19 03:32 97.2 F L 83 19 119/62 96 Weight Admit Weight 168 lb 11.2 oz Weight 168 lb 11.2 oz I&O: 01/12/19 01/13/19 01/14/19 06:59 06:59 06:59 Intake Total 1155.3 739.9 Output Total 250 250 Balance 905.3 489.9 Result Diagrams: 01/13/19 02:26 01/13/19 02:26 Additional Labs: Accuchecks 01/13/19 01/13/19 01/12/19 10:34 05:52 20:50 POC Glucose 289 H 268 H 222 H 01/12/19 16:33 POC Glucose 259 H Phys Exam - Physical Examination HEENT: PERRLA, moist MMs Neck: no JVD, supple Respiratory: no wheezing, no rales Cardiovascular: RRR, no significant murmur Gastrointestinal: soft, non-tender, positive bowel sounds Musculoskeletal: pulses present right LE edema Neurological: non-focal, moves all 4 limbs Psychiatric: normal affect, A&O x 3 Dx/Plan (1) DVT (deep venous thrombosis) Code(s): I82.409 - ACUTE EMBOLISM AND THOMBOS UNSP DEEP VN UNSP LOWER EXTREMITY Status: Acute Qualifiers: DVT location: lower extremity Affected thrombotic vein of extremity: femoral Chronicity: acute Laterality: right Qualified Code(s): I82.411 - Acute embolism and thrombosis of right femoral vein (2) Hyponatremia Code(s): E87.1 - HYPO-OSMOLALITY AND HYPONATREMIA Status: Acute (3) Afib Code(s): I48.91 - UNSPECIFIED ATRIAL FIBRILLATION Status: Acute Qualifiers: Atrial fibrillation type: paroxysmal Qualified Code(s): I48.0 - Paroxysmal atrial fibrillation Comment: in sinus now (4) DM type 2 (diabetes mellitus, type 2) Status: Chronic Qualifiers: Diabetes mellitus mcfp insulin use: without mcfp use Diabetes mellitus complication status: with unspecified complications Qualified Code(s) : E11.8 - Type 2 diabetes mellitus with unspecified complications (5) HTN (hypertension) Code(s): I10 - ESSENTIAL (PRIMARY) HYPERTENSION Status: Chronic Qualifiers: Hypertension type: essential hypertension Qualified Code(s): I10 - Essential (primary) hypertension (6) H/O cardiac pacemaker Code(s): Z95.0 - PRESENCE OF CARDIAC PACEMAKER Status: Chronic (7) Hypothyroidism Code(s): E03.9 - HYPOTHYROIDISM, UNSPECIFIED Status: Chronic Qualifiers: Hypothyroidism type: unspecified Qualified Code(s): E03.9 - Hypothyroidism , unspecified (8) Pancreatic cancer Status: Chronic Qualifiers: Pancreatic malignancy location: unspecified Qualified Code(s): C25.9 - Malignant neoplasm of pancreas, unspecified Comment: has liver mets - Plan hemostable -: switch heparin to eliquis -: d/w family, [facility] -: dc pt to snf * .
[2019-01-13 15:26] VITALS: TEMP 97.9
--- NOTE | 2019-01-13 16:57 | PDOC.CTH ---
Cardiology Progress Note - Objective Vital Signs Temp Pulse Resp BP Pulse Ox 01/13/19 15:25 97.9 F 82 18 127/63 94 L 01/13/19 11:45 98.2 F 68 18 133/67 95 01/13/19 08:27 97.6 F 69 18 127/60 96 Admit Weight 168 lb 11.2 oz Weight 168 lb 11.2 oz 01/12/19 01/13/19 01/14/19 06:59 06:59 06:59 Intake Total 1155.3 739.9 Output Total 250 250 Balance 905.3 489.9 - Physical Examination General/Neuro: other: (Confused, worse at night. Still under the effects of morphine.) Neck: no JVD present Lungs: unlabored respirations Heart: RRR Abdomen: soft - Labs Result Diagrams: 01/13/19 02:26 01/13/19 02:26 Troponin/CKMB CK-MB (CK-2) 7.3 ng/mL (0-6.6) H* 01/10/19 17:46 Troponin I 0.041 ng/mL (< 0.028) H 01/11/19 00:27 - Assessment/Plan 1. New onset Afib with RVR - Well controlled HR with Diltiazem 5mg/h; on Heparin drip and BBlocker. Change to po meds. 2. RLE DVT - On Heparin drip. Switch to sub Q injections possibly. difficult for OAC with hepatic and renal issues. 3. Hyponatremia - on 800ml fluid restriction 4. MARIA VICTORIA - stable 5. DM type 2 - 6. Hx of PM placement 7. Metastatic Pancreatic cancer - the pt refused further chemotherapy MAR reviewed
[2019-01-13 20:46] VITALS: BP 133/67
[2019-01-13] MEDS ORDERED: Apixaban 5 MG TAB PO SCH (21:00)
--- NOTE | 2019-01-14 10:38 | PQF ---
TIARA AUSTIN VINAYA KUMAR MD [id number] CLINICAL DOCUMENTATION CLARIFICATION FORM: POST DISCHARGE Addendum to original discharge summary date: ____ Late entry note date: __ DATE: 01/14/19 ATTN: Dr. Chong, Please exercise your independent, professional judgment in responding to the clarification form. Clinical indicators are provided on the bottom of this form for your review Please check appropriate box(s): [ ] Acute on Chronic Renal Failure please specify Stage of CKD (see below) [ ] CKD without ARF/MARIA VICTORIA please specify Stage of CKD [ x] Other diagnosis MARIA VICTORIA on admission resolved [ ] Unable to determine In addition, please specify: Present on Admission (POA): [ x ] Yes [ ] No [ ] Unable to determine National Kidney Foundation Guidelines for CKD Staging Stage I Kidney damage with normal or increased GFR GFR > 90 Stage II Kidney damage with mildly decreased GFR GFR 60-89 Stage III Kidney damage with moderately decreased GFR GFR 30-59 Stage IV Kidney damage with severely decreased GFR GFR 16-29 Stage V Kidney failure GFR<15 ESRD End Stage Renal Disease On dialysis Acute Renal Failure/Acute Kidney Failure defined as: Increases in SCr by (>) 0.3 mg/dl within 48 hours OR- Increases in SCr by (>) 1.5 times baseline, known or presumed to have occurred within the prior 7 days OR- Urine volume < 0.5 ml/kg/hour for 6 hours (KDIGO supplement 2012 for RIFLE/THO criteria) For continuity of documentation, please document condition throughout progress notes and discharge summary. Thank You. CLINICAL INDICATORS - SIGNS / SYMPTOMS / LABS Chronic kidney disease, stable--01/[address] Timmons Acute kidney insufficiency--01/11 H&P eGFR--75,81,86--01/11,01/12,01/13 labs RISK FACTORS Poor po intake as well as use of diuretics--/ H&P Hypertension--01/11 H&P Diabetes mellitus--01/11 H&P TREATMENTS: Hold the diuretic and JERRY/ARB and resuscitate with IV fluids--01/11 H&P Monitor closely--01/11 H&P Consult nephrology--Ordered 01/11 H&P Thank you, Lissy Suarez, [facility] 01/14/19 @10:37AM (This form is maintained as a part of the permanent medical record) 2014 [employer] All Rights Reserved [email or web address] [phone] [facility]
--- NOTE | 2019-01-14 11:38 | DIS ---
DATE OF ADMISSION: 01/11/2019 DATE OF DISCHARGE: 01/13/2019 DISCHARGE DISPOSITION: To long term in [place] with hospice. PRIMARY DISCHARGE DIAGNOSES: Right lower extremity deep venous thrombosis with likely pulmonary embolism; paroxysmal atrial fibrillation, in sinus rhythm; hyponatremia; acute kidney injury on admission, resolved; history of pancreatic cancer with progression and liver metastases. SECONDARY DISCHARGE DIAGNOSES: Hypothyroidism, history of pacemaker, hypertension, and diabetes mellitus, type 2. PROCEDURES DONE DURING HOSPITALIZATION: Bilateral lower extremity venous Doppler done showed extensive occlusive DVT of right lower extremity. CT of the lumbar spine without contrast done showed prominent multilevel degenerative change. No acute fracture was seen. There was hypodensity seen within the partially imaged liver, which could represent malignancy. Right upper quadrant ultrasound done showed cirrhotic morphology of liver with intrinsic mass. There is perihepatic ascites seen. Echo with 2D Doppler showed an EF of 50%. Initial BUN and creatinine were 23 and 1.5. Initial sodium was 124, serum bicarb of 20, AST 46, ALT 44, alk phos 979, total bilirubin 3.3, CK-MB 7.3 with troponin of 0.04, and albumin 2.8. Discharge AST is 15, ALT 29, alk phos 638, total bilirubin 3.2 on the day of discharge. Discharge BUN and creatinine were 24 and 0.8. Discharge albumin is 2.3. DISCHARGE MEDICATIONS: 1. Eliquis 10 mg twice daily for 7 days, then 5 mg twice daily thereafter for the DVT and PE. 2. Creon 12,000 units 3 capsules 3 times daily. 3. Synthroid 25 mcg p.o. daily. 4. Gabapentin 300 mg p.o. daily. 5. Cardizem 30 mg p.o. three times daily. 6. Fentanyl transdermal patch 50 mcg q.72 hourly. 7. Lopressor 25 mg twice daily. 8. Senokot-S 2 tablets p.o. twice daily. ALLERGIES: NO KNOWN DRUG ALLERGIES. INPATIENT CONSULT: Dr. Montoya for Cardiology, Dr. Timmons for Nephrology, and Dr. Александр Pryor for Oncology. BRIEF COURSE DURING HOSPITALIZATION: The patient initially was brought to emergency room on the with complaints of right lower extremity pain and swelling. He was found to have proximal DVT. The patient also had elevated LFTs. He complained of lower back pain, for which a lumbar spine CAT scan was done. The CAT scan did not reveal any fractures, but showed incidental mass in the liver. The patient has known history of pancreatic cancer and has had dedicated right upper quadrant ultrasound done, which confirmed the mass in the liver. He likely has metastasis from his pancreatic cancer. He has been off chemotherapy for last 6 months or so after initially responding well. He has had consultation with Dr. Александр Pryor for Oncology. Mr. Zheng had initial acute kidney injury, which completely resolved with fluid resuscitation. He also developed paroxysmal AFib, which converted to sinus on Cardizem drip. The patient likely has pulmonary embolus in view of massive proximal DVT with clinical features suggestive of it. He was on heparin drip, which has been switched over to Eliquis. The family did not want to pursue any further chemotherapy and wanted to go into hospice. In view of advanced age, deconditioning, and likely worsening physical condition with progressive cancer , the patient is being discharged to long term in [facility] closer to their home with hospice. This has been arranged by Case Management. The family requested the patient be on Eliquis for at least a month to help relieve the swelling and pain in his right lower extremity for at least comfort. In view of this, he has been continued on Eliquis. They are clearly aware of the pancreatic cancer and likely recurrence of DVT after discontinuing. A total of 35 minutes was spent on discharge plan. Please see a [id number] documentation for the day of discharge on [employer]. Job ID: [id number] MTDD
== END 2019-01-13 17:40 | DRG 280 ==
LOC: ERS 16:34 → 2NO 01-11 00:53
PROVIDERS: ADMIT Internal Medicine; ATTEND Internal Medicine
DX: I82.411 Acute embolism and thrombosis of right femoral vein (principal); I21.A1 Myocardial infarction type 2; I26.99 Other pulmonary embolism without acute cor pulmonale; C78.7 Secondary malignant neoplasm of liver and intrahepatic bile duct; M48.50XA Collapsed vertebra, not elsewhere classified, site unspecified, initial encounter for fracture; E22.2 Syndrome of inappropriate secretion of antidiuretic hormone; N17.9 Acute kidney failure, unspecified; I82.431 Acute embolism and thrombosis of right popliteal vein; I48.0 Paroxysmal atrial fibrillation; E03.9 Hypothyroidism, unspecified; I10 Essential (primary) hypertension; Z66 Do not resuscitate; Z51.5 Encounter for palliative care; G89.29 Other chronic pain; E11.9 Type 2 diabetes mellitus without complications; D64.9 Anemia, unspecified; Z92.21 Personal history of antineoplastic chemotherapy; Z96.653 Presence of artificial knee joint, bilateral; Z95.0 Presence of cardiac pacemaker; Z79.899 Other long term (current) drug therapy; Z85.07 Personal history of malignant neoplasm of pancreas; Z87.311 Personal history of (healed) other pathological fracture
CPT/HCPCS: 36415; 36416; 71045; 72131; 76705; 80048; 80053; 81003; 81015; 82550; 82553; 83930; 83935; 84300; 84484; 85025; 85730; 93306; 93970; J1644; J2270; J2405; J3490